=== PATIENT | female | born 1950 | race Caucasian/White ===

== ENCOUNTER → 2016-11-12 | Outpatient (CLI) | payer OTHER ==
[~2016-11-12] MED LIST: LEVO100T PO; LSN/10125 PO
[2016-11-12 17:07] LABS: BASO % 0.6 %; BASO ABS # 0.04 K/uL (0-0.2); COMPLETE YES; HEMATOCRIT 38.1 % (37-47); IG% 0.1 %; LYMPH % 20.8 %; LYMPH ABS # 1.44 K/uL (1.2-3.4); MEAN CELL VOLUME 87.2 fL (80-100); MEAN CORPUSCULAR HEMOGLOBIN 29.1 pg (25-34); MEAN CORPUSCULAR HGB CONC 33.3 g/dl (32-36); MEAN PLATELET VOLUME 10.5 fL (7.4-10.4); MONO % 6.8 %; NEUT % 69.7 %; PLATELET COUNT 281 K/uL (130-400); RED BLOOD COUNT 4.37 M/uL (4.2-5.4); WHITE BLOOD COUNT 6.92 K/uL (4.8-10.8)
[2016-11-12 17:20] LABS: BLOOD UREA NITROGEN 10 mg/dl (7-18); BUN/CREATININE RATIO 12.8 (10-20); CALCIUM 9.2 mg/dl (8.5-10.1); CARBON DIOXIDE 28 mmol/L (21-32); CHLORIDE 105 mmol/L (98-107); CREATININE 0.78 mg/dl (0.60-1.20); GLUCOSE 88 mg/dl (70-99); POTASSIUM 3.7 mmol/L (3.5-5.1); SODIUM 142 mmol/L (136-145)
[2016-11-12 17:30] LABS: CHOLESTEROL 220 mg/dl (0-200); CHOLESTEROL/HDL RATIO 2.8; HDL CHOLESTEROL 80 mg/dl; LDL CHOLESTEROL CALCULATED 120 mg/dl; THYROID STIMULATING HORMONE 0.511 uIu/ml (0.300-4.500); TRIGLYCERIDES 98 mg/dl (0-150); VERY LOW DENSITY LIPOPROT CALC 20 mg/dl
--- NOTE | 2016-11-17 13:35 | CODING QUERY MEDICAL NECESSITY ---
SUPPORTING DIAGNOSIS NEEDED A supporting diagnosis is required for the test/procedure performed on this patient in order for us to be reimbursed by the patient's insurance. Please provide a supporting diagnosis for the following test/procedure listed below next to the test name along with your signature. *If there is no additional diagnosis for this patient that would support the following test/procedure please document that below next to the test/procedure. Test(s)/Procedure(s) that require a supporting diagnosis: * VITAMIN D 25 HYDROXY DIAGNOSIS: * DOS: 11/12/16 Provider Signature: Date: Thank you Shira Lee Health Information Management Once completed, please kindly fax back to [phone] For questions please call [phone]
== END | disposition home or self-care (01) ==
LOC: C.LABBC 13:44
PROVIDERS: ATTEND Internal Medicine Geriatric Medicine
DX: I10 Essential (primary) hypertension (principal); E78.5 Hyperlipidemia, unspecified; K86.2 Cyst of pancreas; E89.0 Postprocedural hypothyroidism

== ENCOUNTER 2021-01-28 08:31 | Observation (INO) ==
--- NOTE | 2021-01-07 12:30 | Anesthesiology Consultation ---
Date of Service January 07, 2021 Assessment & Plan (1) Encounter for pre-operative examination: COVID screening: Per assessment on 01/07: Travel screen negative, no known COVID- 19 positive contacts or current COVID-19 related symptoms. Patient fully vaccinated. Surgeon arranging preop COVID testing. Awaiting results. Chart Review Chart Review: Acceptable Risk for Surgery and Patient seen in Pre Admission Testing Teaching & Discussion Pre-Anesthesia Teaching/Discussion Notes: Instructed NPO after midnight before surgery,except medications with 15 cc of water. Medication instructions provided according to the PAT guidelines. History Surgery Operation Date: 01/28/21 09:20 Proposed Procedures p Left Total Knee Arthroplasty - Devon Nobles DO Height/Weight Height: 5 ft Weight: 75.1 kg Allergies Allergy/AdvReac Type Severity Reaction Status Date / Time codeine AdvReac Mild Nausea Verified 01/07/21 12:04 Medications Home Medications Medication Instructions Recorded Confirmed Last Taken cholecalciferol (vitamin D3) 50 mcg PO PM 09/20/20 01/07/21 Unknown [Vitamin D3] levothyroxine 100 mcg PO QAM 09/20/20 01/07/21 Unknown lisinopril-hydrochlorothiazide 1 tab PO PM 09/20/20 01/07/21 Unknown meloxicam 7.5 mg tablet 7.5 - 15 mg PO PM #40 tab 11/16/20 01/07/21 Unknown Wheeled Walker #1 ea 01/07/21 01/07/21 Unknown Past Medical History Medical History Dyslipidemia GERD (gastroesophageal reflux disease) occasional Hx of Graves' disease hypothyroidism s/p ablation Hypertension Obesity Osteoarthritis Exercise / Class Metabolic Activity II 4-5 Yardwork/Stairs/Walk up hill (1 flight of stairs (no chest pain, no sob)) Past Family History Family History Mother Osteoporosis Hypertension Father Osteoarthritis Other No family history of adverse response to anesthesia Past Surgical History Surgical History History of cataract surgery R/L History of cholecystectomy History of tooth extraction Past Anesthesia History No Hx of Anesthesia Complications and No Family Hx of Anesthesia Complications History of PONV No Hx of PONV and No Hx of Motion Sickness Social History Smoking Status: Never smoker Do You Dip or Chew Tobacco: No Hx Alcohol Use: No Hx Substance Use: No substance use type: does not use Review of Systems No snoring. Patient denies chest pain, shortness of breath, dyspnea on exertion, fever, chills, cough, wheezing, palpitations. Physical Exam Vital Signs VITALS BP 124/75 P 73 TEMP 97.9 SP02 99%RA RESP 18 PHYSICAL Full neck and c-spine range of motion. Full TMJ range of motion. TMD 3 finger breaths Mallampati Score 4 (small oral opening) Dentition: full dentures upper/lower Lungs: clear throughout to auscultation Cardiac: regular rate and rhythm, no murmurs noted Spine: normal Carotid arteries: negative bruit Extremities: no edema Testing Laboratory Results 01/07/21 13:02 01/07/21 13:02 PT 9.5 Seconds (9.0-12.0) 01/07/21 13:02 INR 0.9 (0.9-1.1) 01/07/21 13:02 APTT 24.8 Seconds (21.0-31.0) 01/07/21 13:02 Blood Type AB Positive 01/07/21 13:02 Antibody Screen NEGATIVE 01/07/21 13:02 Electrocardiogram Date: 01/07/21 NSR at 67bpm. NS TWA. Chest X-Ray Date: 01/07/21 FINDINGS: The lungs are clear. Cardiac silhouette is top normal in size. No pleural effusions. No pneumothorax. Prior cholecystectomy. Old moderate compression deformity within the lower thoracic spine. IMPRESSION: No acute process.
--- NOTE | 2021-01-07 13:40 | XRay Report ---
XR chest Pre-admission PA/Lat HISTORY: Preop. COMPARISON: Chest 10/27/2012. FINDINGS: The lungs are clear. Cardiac silhouette is top normal in size. No pleural effusions. No pne umothorax. Prior cholecystectomy. Old moderate compression deformity within the lower thoracic spine. IMPRESSION: No acute process. ACT 112: Negative or not required by law. Electronically signed by: Keyshawn Chau M.D. 01/07/2021 1:39 PM
[2021-01-07 13:43] LABS: Basophils # (auto) 0.03 K/uL (0-0.2); Basophils % (auto) 0.4 %; Eosinophils # (auto) 0.11 K/uL (0-0.5); Eosinophils % (auto) 1.5 %; Hematocrit (blood only) 39.8 % (37-47); Hemoglobin 13.2 g/dL (12.0-16.0); Immature Granulocytes # (auto) 0.01 K/uL (0.00-0.02); Immature Granulocytes % (auto) 0.1 %; Lymphocytes # (auto) 1.58 K/uL (1.2-3.4); Lymphocytes % (auto) 22.1 %; Mean Corpuscular Hemoglobin 29.1 pg (25-34); Mean Corpuscular Hgb Conc 33.2 g/dL (32-36); Mean Corpuscular Volume 87.7 fL (80-100); Mean Platelet Volume 10.5 fL (7.4-10.4); Monocytes % (auto) 5.6 %; Neutrophils # (auto) 5.01 K/uL (1.4-6.5); Neutrophils % (auto) 70.3 %; Platelet Count 297 K/uL (130-400); RDW Coefficient of Variation 13.7 % (11.5-14.5); RDW Standard Deviation 43.9 fL (36.4-46.3); Red Blood Count 4.54 M/uL (4.2-5.4); White Blood Count 7.14 K/uL (4.8-10.8)
[2021-01-07 13:58] LABS: INR 0.9 (0.9-1.1); Partial Thromboplastin Ratio 0.9; Partial Thromboplastin Time 24.8 Seconds (21.0-31.0); Prothrombin Time 9.5 Seconds (9.0-12.0)
[2021-01-07 14:05] LABS: BUN Creatinine Ratio 20.9 (10-20); Calcium 9.8 mg/dl (8.5-10.1); Creatinine Clr Calc Pharmacy 57.5 ml/min; Est GFR (African American) 85.4; Est GFR (Non-African American) 73.7; Potassium 4.1 mmol/L (3.5-5.1)
--- NOTE | 2021-01-07 14:40 | Electrocardiogram Report ---
Test Reason : Blood Pressure : / mmHG Vent. Rate : 067 BPM Atrial Rate : 067 BPM P-R Int : 142 ms QRS Dur : 104 ms QT Int : 416 ms P-R-T Axes : 049 044 056 degrees QTc Int : 439 ms Normal sinus rhythm Nonspecific T wave abnormality Abnormal ECG When compared with ECG of 27-OCT-2012 19:37, No significant change was found Confirmed by Pa Lynne ([id number]) on 01/07/2021 2:40:01 PM Referred By: Devon Nobles Confirmed By:Pa Lynne
--- NOTE | 2021-01-28 06:16 | History & Physical Report ---
Date of Service January 28, 2021 Assessment & Plan (1) Osteoarthritis of left knee: We will proceed with a left total knee arthroplasty. Postoperatively she will be started on aspirin for DVT prophylaxis and placed in our outpatient joint protocol. She will be discharged home today. Therapy is scheduled to come to her house tomorrow. History of Present Illness Chief Complaint: Osteoarthritis of the left knee. Primary Care Provider: Devon Roach DO Sparkle is a pleasant 70-year-old female who has been dealing with chronic increasing left knee pain. X-rays and clinical examination have been diagnostic for advanced osteoarthritis of the left knee. After failing conservative treatment, she has elected to proceed with a left total knee arthroplasty.. Allergies Allergy/AdvReac Type Severity Reaction Status Date / Time codeine AdvReac Mild Nausea Verified 01/07/21 12:04 Home Medications Medication Instructions Recorded Confirmed Type cholecalciferol (vitamin D3) 50 mcg PO PM 09/20/20 01/07/21 History [Vitamin D3] levothyroxine 100 mcg PO QAM 09/20/20 01/07/21 History lisinopril-hydrochlorothiazide 1 tab PO PM 09/20/20 01/07/21 History meloxicam 7.5 mg tablet 7.5 - 15 mg PO PM #40 tab 11/16/20 01/07/21 Rx Wheeled Walker #1 ea 01/07/21 01/07/21 Rx ondansetron HCl 4 mg tablet 4 mg PO Q8H PRN #10 tab 01/25/21 Rx tramadol 50 mg tablet 50 mg PO Q8H PRN #30 tab 01/25/21 Rx Past Med/Surg History Medical History Dyslipidemia GERD (gastroesophageal reflux disease) occasional Hx of Graves' disease hypothyroidism s/p ablation Hypertension Obesity Osteoarthritis Surgical History History of cataract surgery R/L History of cholecystectomy History of tooth extraction Family History Mother Osteoporosis Hypertension Father Osteoarthritis Other No family history of adverse response to anesthesia Social History Smoking Status: Never smoker Second Hand Exposure: Yes ( A CHILD); Hx Alcohol Use: No Hx Substance Use: No Preferred Language: Khmer Communication Ability: Effective Visual Impairment: No Limitations Hearing Ability: Normal Coatings Inspector Required: No Beliefs That Will Affect Care: None marital status: Current Living Situation: Spouse current occupational status: retired 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 Physical Exam On physical examination of the left knee, she does have a varus deformity. She has severe tenderness palpation over the medial joint line and over the distal medial femoral condyle. She has no gross instability.. Constitutional WD/WN, vitals as above Eyes PERRL, conjunctivae normal, anicteric sclerae ENMT external ear and nose normal, oropharynx normal Neck trachea midline, no thyromegaly Respiratory normal respiratory effort Cardiovascular RRR, no murmur, no edema Gastrointestinal (Abdomen) normal bowel sounds, soft, nontender, no hepatosplenomegaly Psychiatric A+Ox3, euthymic affect Results & Data Results & Data Laboratory Results . Diagnostic Findings X-rays of the left knee do show advanced osteoarthritis with joint space narrowing, osteophyte formation, and [id number] articulation.. PG Care Time/CCT Total # of Minutes Spent Total Time Spent with Patient: Total time spent is greater than 50% in coordination of care (as documented) at patient's floor/unit and/or counseling patient: Coding Level of Care Code None Diagnoses Osteoarthritis of left knee M17.12
[~2021-01-28 08:31] MED LIST changes: +ACETAMINOPHEN 500 MG TAB PO SCH; +BUPIVACAINE 0.25% 30 ML VIAL ONE; +DEXAMETHASONE SOD INJ 4 MG/ML VIAL ONE; +EPINEPHrine INJ 1 MG/ML AMP ONE; +FAMOTIDINE 20 MG TAB PO SCH; +GABAPENTIN 300 MG CAP PO SCH; -LEVO100T PO; +LIDOCAINE/EPINEPHRINE 2% 1:200,000 20 ML SDV ONE; +LR 500ML BOLUS, THEN 15ML/HR IV SCH; +LR 60ML/HR IV SCH; -LSN/10125 PO; +ROPIVACAINE 0.5% HCL/PF 150 MG, BUPIVACAINE 0.75% MPF 20 ML, EPINEPHrine 30MG/30ML (OR ... INSTIL SCH; +TRANEXAMIC ACID 1,000 MG **IV Intra-op IV SCH; +TRANEXAMIC ACID 1,000 MG **IV Pre-op IV SCH; +ceFAZolin 1000MG 1,000 MG/7.5 ML SYR IV SCH; +dexAMETHasone 4 MG TAB PO SCH
[2021-01-28] MEDS ORDERED: MIDAZOLAM HCL 1 MG/ML 2ML VIAL ONE (10:15)
[2021-01-28] MEDS ORDERED: fentaNYL citrate 100 MCG/2 ML VIAL ONE (10:15)
[2021-01-28] MEDS ORDERED: KETAMINE 50 MG/5 ML SYRINGE ONE (10:15)
[2021-01-28] MEDS ORDERED: ONDANSETRON INJ 2 MG/ML 2 ML VIAL ONE (10:38)
[2021-01-28] MEDS ORDERED: PROPOFOL IV EMULSION 10 MG/ML 20 ML VIAL IV ONE (10:38)
[2021-01-28] MEDS ORDERED: GLYCOPYRROLATE 0.2 MG/ML VIAL ONE (10:38)
[2021-01-28] MEDS ORDERED: KETOROLAC 30 MG/ML VIAL ONE (10:38)
[2021-01-28] MEDS ORDERED: fentaNYL citrate 100 MCG/2 ML VIAL IV PRN (11:12)
[2021-01-28] MEDS ORDERED: ePHEDrine sulfate 50 MG/ML AMP IV PRN (11:12)
[2021-01-28] MEDS ORDERED: ONDANSETRON INJ 2 MG/ML 2 ML VIAL IV PRN ×2 (11:12→16:20)
[2021-01-28] MEDS ORDERED: ATROPINE SULFATE 0.1 MG/ML 10ML SYR IV PRN (11:12)
[2021-01-28] MEDS ORDERED: ORTHO JOINT ANESTHETIC ONE (11:39)
[2021-01-28] MEDS ORDERED: PHENYLEPHRINE 100MCG/ML 5ML SYR ONE (12:37)
--- NOTE | 2021-01-28 13:23 | Operative Report ---
PG Post Operative Report Pre & Post Diagnosis Operation Date: 01/28/21 10:55 Pre-Op Diagnosis: DJD Knee Left Post-Op Diagnosis: DJD Knee Left I identified the patient and participated in the time-out.: Yes Procedure Operation Date: 01/28/21 10:55 Actual Procedures p Left Total Knee Arthroplasty(Left) - Devon Nobles DO Surgeon Devon Nobles, Cloth Spreader Devon Yates PAC Estimated Blood Loss 10 Findings Consistent with Post-Op Diagnosis Specimens Left femoral and tibial bone Complications none Disposition Disposition: Recovery Room Indications Sparkle is a pleasant 70-year-old female who presented to my office with complaints of chronic increasing left knee pain. X-rays and clinical examination were diagnostic for advanced osteoarthritis of the left knee. After failing conservative treatment, she elected proceed with a left total knee arth roplasty. Description of Procedure Implants used: I used a Elvira Persona total knee arthroplasty system with a size 5 standard femur, D tibia, 32 patella, and a size 13 medial congruent polyethylene bearing. All components were cemented in place with Simplex HV cement. Sparkle arrived [facility] for the above procedure. She was seen in the preoperative holding area and the operative extremity was identified and signed. She was given a preoperative antibiotic, TXA, a spinal anesthetic and an adductor nerve block. She was taken back to the operating room and laid on the table in supine position. She was given basic sedation. The operative knee was then prepped and draped in sterile fashion. A timeout was done, and the patient and the operative extremity was properly identified. A midline incision was made directly over the patella. Dissection was taken down to the extensor mechanism. A subvastus arthrotomy was used. The medial retinaculum was released and the fat pad was mostly excised. The knee was flexed and the ACL, PCL, and meniscus were removed. A drill was sent down the center of the femoral canal followed by an intramedullary jose antonio. Off that jose antonio a distal femoral cutting block was placed. 9 mm was resected off the distal femur at 5 of valgus. A posterior referencing AP sizing guide was then placed on the distal femur. The femur measured to be a size 5. 2 drill holes were placed in 3 of external rotation. A 4-in-1 cutting block was then impacted into place. Anterior, posterior, and chamfer cuts were then made. The proximal tibia was then exposed. An external tibial alignment guide was placed. A tibial cut guide was then anchored in place and the proximal tibia was then resected. The posterior aspect of the knee was then opened up and any additional meniscus fragments and osteophytes were removed. The tibia measured to be a size D. The tibial plate was then placed in the appropriate rotation and the tibia was drilled and punched. Trial components were then placed. I used a size 13 medial congruent polyethylene insert. The knee was brought through a full range of motion and felt to be stable. The peg holes for the femoral component were then drilled. The patella was then everted and 9 mm was resected off the posterior aspect of the patella. The patella measured to be a size 32. 3 peg holes were then drilled. A trial patella was placed. The knee was once again brought through a full range of motion and felt to be stable. Trial components were then removed. The surrounding soft tissues were injected with 100 cc of an orthopedic pain control cocktail. All components were then cemented into place with Simplex HV cement. The final polyethylene insert was then snapped into place. Once cement was dry the tourniquet was deflated. Hemostasis was obtained. A dilute betadyne lavage was then done for 3 minutes. The joint was then irrigated with normal saline solution. The subvastus arthrotomy was then closed with #1 Vicryl suture. The skin was closed with 2-0 Vicryl, 3-0V lock suture, and consuelo. A Silverlon and a soft compressive dressing were placed. She was then transferred to a hospital bed and taken to the postanesthesia care unit in stable condition. She tolerated the procedure well. Devon Yates PA-C, was present for the entire procedure. He was critical for patient positioning, prepping, draping, retraction exposure, wound closure and application of sterile dressing. I attest to the content of the Intraoperative Record and any orders documented therein. Any exceptions are noted below.
[2021-01-28] MEDS ORDERED: oxyCODONE/ACETAMINOPHEN 5mg/325mg TAB PO PRN (13:26)
--- NOTE | 2021-01-28 13:56 | XRay Report ---
XR knee LT 1 or 2V routine CLINICAL HISTORY: Surgical Post Op COMPARISON: None DISCUSSION: There are postsurgical changes of a total left knee arthroplasty and patellar resurfacing . The femoral tibial components appear well seated. There is gas within the soft tissues consistent w ith recent surgery. There are overlying skin consuelo. IMPRESSION: Postsurgical changes of a total left knee arthroplasty. ACT 112: Negative or not required by law. Electronically signed by: Thomas Pineda M.D. 01/28/2021 1:55 PM
--- NOTE | 2021-01-28 14:12 | Anesthesiology Progress Note ---
Date of Service January 28, 2021 Anesthesia Post Procedure Vital Signs Vital Signs: Temp Pulse Pulse Resp BP BP Pulse Ox 01/28/21 13:55 36.6 C 69 16 112/66 96 01/28/21 13:45 94 H 16 103/66 96 01/28/21 13:35 36.8 C 100 H 16 98/60 L 96 01/28/21 09:20 36.8 C 74 18 119/72 100 Transfer of Care Handoff Completed per policy Notes Mental Status: alert / awake / arousable Patient Amnestic to Procedure: Yes Nausea / Vomiting: adequately controlled Pain: adequately controlled Airway Patency, RR, SpO2: stable & adequate BP & HR: stable & adequate Hydration State: stable & adequate Neuraxial Anesthesia: was administered and sensory block is resolving Anesthetic Complications: no major complications apparent
--- NOTE | 2021-01-28 14:13 | Anesthesia Procedure Note ---
Date of Service January 28, 2021 Anesthesia Post Epidural Note Vital Signs Vital Signs: Temp Pulse Resp BP Pulse Ox 36.6 C 69 16 112/66 96 01/28/21 13:55 01/28/21 13:55 01/28/21 13:55 01/28/21 13:55 01/28/21 13:55 Notes Mental Status: alert / awake / arousable Nausea / Vomiting: adequately controlled Pain: adequately controlled Airway Patency, RR, SpO2: stable & adequate BP & HR: stable & adequate Hydration State: stable & adequate Neuraxial Anesthesia: was administered and sensory block is resolving Anesthetic Complications: no major complications apparent and Pt Satisfied with anesthetic care Epidural: Removed without complications and With tip intact
[2021-01-28] MEDS ORDERED: PROMETHAZINE HCL 6.25 MG in SODIUM CHLORIDE 0.9% 50 ML IV STA (15:21)
[2021-01-28] MEDS ORDERED: NALOXONE HCL 0.4 MG/1 ML VIAL/CARP IV PRN (16:20)
[2021-01-28] MEDS ORDERED: bisacodyL 10 MG SUPP PR PRN (16:20)
[2021-01-28] MEDS ORDERED: MAGNESIUM HYDROXIDE SUSP 30 ML UDC PO PRN (16:20)
[2021-01-28] MEDS ORDERED: HYDROmorphone INJ 0.5 MG/0.5 ML SYR IV PRN (16:20)
[2021-01-28] MEDS ORDERED: METOCLOPRAMIDE HCL INJ 5 MG/ML 2 ML VIAL IV PRN (16:20)
[2021-01-28] MEDS ORDERED: traMADol HCL 50 MG TABLET PO PRN (16:20)
[2021-01-28] MEDS: SODIUM CHLORIDE 0.9% 1000ML 1,000 ML IV SCH (16:32)
[2021-01-28] MEDS: KETOROLAC TROMETHAMINE 15 MG/ML VIAL IV SCH ×2 (16:48→22:49)
[2021-01-28] MEDS: ceFAZolin 2000MG 2,000 MG/15 ML SYR IV SCH (20:53)
[2021-01-28] MEDS ORDERED: SENNA 8.6 MG TAB PO SCH (21:00)
[2021-01-28] MEDS ORDERED: LISINOPRIL/HCTZ 10/12.5MG TAB PO SCH (21:00)
[2021-01-28] MEDS: DOCUSATE SODIUM 100 MG CAP PO SCH (21:06)
[2021-01-28] MEDS: ACETAMINOPHEN 500 MG TAB PO SCH (21:06)
[2021-01-28] MEDS: ASPIRIN 81 MG ECTAB PO SCH (21:06)
[2021-01-29] MEDS: KETOROLAC TROMETHAMINE 15 MG/ML VIAL IV SCH ×2 (03:33→11:01)
[2021-01-29] MEDS: ceFAZolin 2000MG 2,000 MG/15 ML SYR IV SCH (03:34)
[2021-01-29] MEDS ORDERED: LEVOTHYROXINE SODIUM 100 MCG TABLET PO SCH (06:30)
[2021-01-29] MEDS: ACETAMINOPHEN 500 MG TAB PO SCH (06:31)
--- NOTE | 2021-01-29 06:40 | Orthopedic Progress Note ---
Date of Service January 29, 2021 Assessment & Plan (1) Status post left knee replacement: Overall she is doing very well. She is not having much pain in the left knee. She will be seen by physical therapy today for ambulation and range of motion exercises. She is on aspirin for DVT prophylaxis. She can be discharged home later today. She will follow-up with orthopedics in 2 weeks. Meera Villagran was seen and examined at bedside this morning. Overall she is doing very well. She is not any much pain in the left knee. She was admitted last night due to nausea and dizziness. She was given some medications and feels much better. She has been ambulating to the bathroom. She has no other complaints.. Review of Systems All systems reviewed & are unremarkable except as noted in HPI & below. Physical Exam On physical examination of the left knee, the dressing is clean and dry. She has active dorsiflexion plantarflexion of her left ankle. Sensation is intact throughout.. Results & Data Results & Data Laboratory Results . Diagnostic Findings Postoperative x-rays of the left knee show the prosthesis to be in anatomic alignment without any evidence of fracture, dislocation, or loosening. PG Care Time/CCT Total # of Minutes Spent Total Time Spent with Patient: Total time spent is greater than 50% in coordination of care (as documented) at patient's floor/unit and/or counseling patient: Coding Level of Care Code 39301 Post Operative Follow-Up Diagnoses Status post left knee replacement Z96.652
--- NOTE | 2021-01-29 06:42 | Discharge Summary ---
Date of Service January 29, 2021 Admission HPI (Per Admitting) Sparkle is a pleasant 70-year-old female who has been dealing with chronic increasing left knee pain. X-rays and clinical examination have been diagnostic for advanced osteoarthritis of the left knee. After failing conservative treatment, she has elected to proceed with a left total knee arthroplasty.. Admission Exam (Per Admitting) On physical examination of the left knee, she does have a varus deformity. She has severe tenderness palpation over the medial joint line and over the distal medial femoral condyle. She has no gross instability.. Principal Diagnosis Same as "Discharge Diagnosis" noted below under Discharge Instructions. Discharge Exam On physical examination of the left knee, the dressing is clean and dry. She has active dorsiflexion plantarflexion of her left ankle. Sensation is intact throughout.. Discharge Data Procedures Performed Operation Date: 01/28/21 10:55 Actual Procedures p Left Total Knee Arthroplasty(Left) - Devon Nobles DO Ordered Studies 01/28/21 05:00 US - OR guided needle placemen Routine Hospital Course (1) Status post left knee replacement: On January 28, 2021 Sparkle arrived at [facility] and underwent a left knee replacement without complication. She had a spinal anesthetic. Postoperatively she was started on aspirin for DVT prophylaxis. She was in our outpatient joint protocol, however, postoperatively she was having a lot of nausea and dizziness. She was unable to be seen by therapy by the end of the day. The decision was made to admit her overnight for observation. Her hospital course was uneventful. On postop day #1 her vital signs were stable and her pain was well controlled. She was feeling much better. She was seen by physical therapy for ambulation and range of motion exercises. She was then discharged home. She will follow-up with orthopedics in 2 weeks. PG Care Time/CCT Total # of Minutes Spent Total Time Spent with Patient: Total time spent is greater than 50% in coordination of care (as documented) at patient's floor/unit and/or counseling patient: Discharge Plan Discharge Items Patient Disposition: Home - Home Health Services Reason For Visit: DJD Knee Left Discharge Diagnosis: Left knee replacement Activity: As commented below Non-emergency contact: Surgeon Call non-emergency contact if: your wound has increased redness and your wound has increased drainage Follow-up/Referrals: [facility] [Outside] (Per surgeon's office) Devon Roach DO [Primary Care Provider] - Devon Nobles DO [Physician] - Diet: Regular Addtl Attending Provider Instructions: Activity and Therapy Recommendations: * If you are using [facility] then therapy will be provided at your home until they feel you have accomplished all of your goals. * If you are using [facility] then Physical Therapy will be provided until they feel you are ready to start Outpatient Physical Therapy. * If you are not using home therapy then Outpatient Physical Therapy should start about 3-5 days from your day of surgery. Therapy will last about 6-10 weeks * It is important not to put a pillow under your knee when you are relaxing or sleeping. It is just as important to make sure you are getting your knee perfectly straight as it is to regain your knee bend. * You were shown a series of exercises in the hospital. Do these exercises three times each day including the exercises you were shown in physical therapy. * Get up and walk several times each day. For the first four weeks, try not to stand or walk for more than one hour at a time. If you do stand or walk for more than one hour, you will not hurt anything, but your leg will likely swell. * As you feel comfortable, you may change from the walker or crutches to a cane and then to independent walking. Medications: * Narcotic You will likely be sent home from the hospital with a prescription for the narcotic pain medication that worked best throughout your stay. * Aspirin Most patients will be required to take Aspirin 81mg twice a day for 6 weeks after surgery. This is obtained [id number] and a prescription is not necessary. * Other medications may be prescribed for specific circumstances. If you have any questions, please call the office at . * Resume previous home medications unless otherwise instructed TEDs/Elastic Stockings: The white elastic stockings help limit swelling and prevent blood clots from forming in your legs.~ The more you wear them, the more they work. Wear them for six weeks. Dressing Care: Leave the dressing on until after physical therapy on day 1. Then you may change the dressing. Daily dry dressing changes, but you may leave the incision open to air if it is not draining. If there is a little bit of drainage or if the consuelo are getting stuck on your clothing then cover the incision with a dry dressing. The consuelo will be removed at your 2 week follow-up appointment. Showering: You may shower 5 days after the day of surgery with the consuelo exposed. Let soapy water run over the consuelo and pat them dry. Do not scrub or soak the incision. Things To Watch For: * Drainage from the incision site that occurs more than one week after your surgery. * Increased redness at the incision site. * Fever above 102 degrees Fahrenheit. * Unusual chest pain or shortness of breath. * Call [facility] at with any of the above problems Follow-Up Visit: Follow-up with Dr. Nobles's PA (Devon Yates) 2-3 weeks after your day of alamo rgery. He will remove your consuelo and answer any questions. If you have any additional questions or concerns, Dr Nobles is usually in the office at the same time and will be available An appointment was probably scheduled when you signed-up for surgery in the office. If you have any questions call Office Instructions: More detailed instructions as well as Frequently Asked Questions were provided in a folder by our office when you signed-up for surgery. Please review these instructions when you get home. If you have any further questions or concerns, please feel free to call the office at [phone] Pending Studies at Discharge: No Stand-Alone Forms: Anesthesia/Sedation, Adult, My [facility] [address] Medications and DC Order Prescriptions: New aspirin [Adult Low Dose Aspirin] 81 mg tablet,delayed release (DR/EC) 81 mg PO BID Qty: 84 RF: 0 Continued meloxicam 7.5 mg tablet 7.5 - 15 mg PO PM Qty: 40 RF: 2 tramadol 50 mg tablet 50 mg PO Q8H PRN (Reason: pain) Qty: 30 RF: 0 ondansetron HCl [Zofran] 4 mg tablet 4 mg PO Q8H PRN (Reason: nausea and vomiting) Qty: 10 RF: 0 (DME) Wheeled Walker Misc See Rx Instructions .MEDSUPPLY Qty: 1 RF: 0 levothyroxine 100 mcg tablet 100 mcg PO QAM RF: 0 lisinopril-hydrochlorothiazide 10-12.5 mg tablet 1 tab PO PM RF: 0 cholecalciferol (vitamin D3) [Vitamin D3] 50 mcg (2,000 unit) Capsule 50 mcg PO PM RF: 0 Discharge Orders: Discharge Order (Routine); Ordered 01/29/21 Ordered By: Devon Ruiz/Other Patient Handouts: DVT Post Op Prevention Admission Data Admit Date/Time: 01/28/21 15:24 Attending Provider: Devon Nobles Admit Provider: Devon Nobles Primary Care Provider: Devon Roach Other Interventions: Discharge Summary Assessment (RN) Last Done: 01/28/21 16:03
[2021-01-29] MEDS ORDERED: dexAMETHasone 4 MG TAB PO SCH (08:00)
[2021-01-29] MEDS: SODIUM CHLORIDE 0.9% 1000ML 1,000 ML IV SCH (08:41)
[2021-01-29] MEDS: DOCUSATE SODIUM 100 MG CAP PO SCH (08:43)
[2021-01-29] MEDS: ASPIRIN 81 MG ECTAB PO SCH (08:44)
[2021-01-29] MEDS ORDERED: MULTIVITAMIN TAB PO SCH (09:00)
== END 2021-01-29 13:47 | disposition home health service (06) ==
LOC: 3E 08:31 → ASU 08:31

== ENCOUNTER 2021-02-11 19:21 | Inpatient (IN) ==
[2021-02-11] MEDS ORDERED: ONDANSETRON INJ 2 MG/ML 2 ML VIAL IV STA (20:00)
[2021-02-11] MEDS ORDERED: SODIUM CHLORIDE 0.9% 500 ML IV SCH (20:00)
[2021-02-11] MEDS ORDERED: SODIUM CHLORIDE 0.9% 1000ML 1,000 ML IV SCH (20:00)
[2021-02-11 20:21] LABS: Hematocrit (blood only) 31.2 % (37-47); Hemoglobin 10.5 g/dL (12.0-16.0); Mean Corpuscular Hemoglobin 29.2 pg (25-34); Mean Corpuscular Hgb Conc 33.7 g/dL (32-36); Mean Corpuscular Volume 86.9 fL (80-100); Mean Platelet Volume 10.1 fL (7.4-10.4); Platelet Count 417 K/uL (130-400); RDW Coefficient of Variation 14.4 % (11.5-14.5); RDW Standard Deviation 45.1 fL (36.4-46.3); Red Blood Count 3.59 M/uL (4.2-5.4); White Blood Count 13.29 K/uL (4.8-10.8)
--- NOTE | 2021-02-11 20:33 | Emergency Department Note ---
Impression & Plan Nausea, Constipation, Weakness, Abnormal weight loss ED Provider Note INFORMANT: Patient ED PROVIDER(S): Juvenal Arias MD CHIEF COMPLAINT: Illness PLAN: Disposition: Admitted Condition: Good Outpatient prescription management: none Referral: None MEDICAL DECISION MAKING: Patient presented to emergency department complaining of illness, weakness and weight loss. She noted nausea. On further review she also noted moderate constipation. She had an IV established. An ECG was performed. This did not show any ST elevation but she did have inferior Q waves and poor progression. Her blood work revealed an elevated white blood cell count of 13,000. She had a mild anemia. Chemistry panel was unremarkable. The patient underwent CT scan imaging of the abdomen and pelvis and this showed a stercoral proctitis and significant constipation. Her endometrium was also mildly thickened. The patient was treated with Zofran and did feel better with this. I discussed the constipation issue and soapsuds enema was ordered. The patient had minimal success with this. Additional fluids were administered. She was still quite uncomfortable and generally weak. She did not feel like she was capable of going home. She still felt constipated. A milk of molasses enema was ordered. Given the proctitis, significant constipation and her generalized weakness the patient had a consultation placed with internal medicine. I discussed the case with Dr. Benz. She evaluated the patient in the ER for further management. Triage Nursing notes reviewed and agree them. Vital Signs: reviewed and remarkable for no significant abnormalities Differential diagnosis: Infection, dehydration, metabolic abnormality, hypo/hyperglycemia, electrolyte disturbance, anemia, hypoxia, cardiac sources, intracerebral event, toxicologic, neurologic, constipation, biliary pathology, as well as other pathologies. Diagnostics interpreted by me: ECG: Twelve-lead ECG reveals normal sinus rhythm at 87 bpm. Inferior Q waves present. There is poor R wave progression anteriorly. No ST elevation. No PVCs. Normal axis. Cardiac Monitoring: Cardiac monitoring ordered by me: The patient was placed on continuous cardiac monitoring and observed. It revealed a sinus tachycardic rhythm at 110 bpm. Imaging studies: CT imaging of the abdomen pelvis reveals stercoral proctitis as noted above. Thickened endometrium also noted. Patient was informed. I refer you to the EMR for further details. HPI: The patient is a 70 year old female who presents to the Emergency Room with complaints of nausea. This started 2 weeks ago and is worsening. The patient also notes the following associated symptoms, 10 pound weight loss, generalized weakness, constipation. The patient has been prescribed Compazine un successfully for relieving factors. Current pain is rated as 0/10. Patient was seen in the ER a week ago and had a work-up done. Work-up was negative. Tested for Covid. This was negative as well. Prescribed Compazine. Notes it is not helping. Pt denies LOC, headache, fevers, chills, diaphoresis, visual changes, neck pain, chest pain, breathing difficulties, vomiting, abdominal pain, back pa in, melena, hematochezia, urinary symptoms, numbness, lymphadenopathy, rash, or other complaints. ROS: See above HPI for pertinent positives & negatives. A total of 10 systems reviewed and were otherwise negative. PAST MEDICAL HISTORY:See Below , hypertension PAST SURGICAL HISTORY:See Below, left total knee replacement FAMILY HISTORY:See Below SOCIAL HISTORY:See Below, retired HOME MEDICATIONS:See Below ALLERGIES:See Below VITALS:See Below PHYSICAL EXAMINATION: GENERAL: Awake, alert, uncomfortable appearing, in mild distress HENT: Normocephalic, atraumatic. Oropharynx unremarkable. EYES: Normal conjunctiva. Sclera non-icteric. NECK: Inspection normal. Non-tender. Supple. No nuchal rigidity. FROM. No masses. RESPIRATORY: Clear to auscultation. No wheezes. No rales. Normal respiratory effort. CARDIAC: Normal rate. Normal rhythm. No murmurs. No rubs. Extremities warm and well perfused. Pulses equal. No JVD. GI: Soft, non-distended. No tenderness to palpation. No rebound or guarding. No masses. RECTAL: Deferred. MUSCULOSKELETAL: Atraumatic. Chest examination reveals no tenderness. The back is symmetrical on inspection without obvious abnormality. There is no CVA tenderness to palpation. No joint edema. LOWER EXTREMITIES: Surgical incision on the left knee appears clean dry and intact. Mild associated bruising and typical postsurgical swelling noted. There is no crepitus. No fluctuance. NEURO: Normal sensorium. No sensory or motor deficits noted. SKIN: No rash or jaundice noted. Juvenal Arias MD Past Med/Surg History Medical History Dyslipidemia GERD (gastroesophageal reflux disease) occasional Hx of Graves' disease hypothyroidism s/p ablation Hypertension Obesity Osteoarthritis Surgical History History of cataract surgery R/L History of cholecystectomy History of tooth extraction Family History Mother Osteoporosis Hypertension Father Osteoarthritis Other No family history of adverse response to anesthesia Social History Smoking Status: Never smoker Second Hand Exposure: Yes ( A CHILD); Hx Alcohol Use: No Hx Substance Use: No Preferred Language: Burmese Communication Ability: Effective Visual Impairment: No Limitations Hearing Ability: Normal Bean Dumper Required: No Beliefs That Will Affect Care: None marital status: Current Living Situation: Spouse current occupational status: retired 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 [employer] Feels Safe at Home: Yes Childhood Exposure to Second-Hand Smoke: Yes Dental Care, Regularly: No Physical Activity Frequency: 5-6 Times per Week Seatbelt Use: always Sunscreen Use: Yes Assistive Devices: Walker Allergies Allergies Allergy/AdvReac Type Severity Reaction Status Date / Time codeine AdvReac Mild Nausea Verified 02/11/21 23:55 Home Meds Home Medications Medication Instructions Recorded Confirmed cholecalciferol (vitamin D3) 50 mcg PO PM 09/20/20 02/11/21 [Vitamin D3] levothyroxine 100 mcg PO QAM 09/20/20 02/11/21 lisinopril-hydrochlorothiazide 1 tab PO PM 09/20/20 02/11/21 acetaminophen [Tylenol Extra 1,000 mg PO BID 02/02/21 02/11/21 Strength] docusate sodium 100 mg PO DAILY 02/11/21 02/11/21 Previous Rx's Medication Instructions Recorded meloxicam 7.5 mg tablet 7.5 - 15 mg PO PM #40 tab 11/16/20 Wheeled Walker #1 ea 01/07/21 ondansetron HCl 4 mg tablet 4 mg PO Q8H PRN #10 tab 01/25/21 tramadol 50 mg tablet 50 mg PO Q8H PRN #30 tab 01/25/21 aspirin [Adult Low Dose Aspirin] 81 mg PO BID #84 tab 01/28/21 prochlorperazine maleate 10 mg PO Q6H PRN #20 tab 02/02/21 [Compazine] Results & Data (ED) Vital Signs Vital Signs - 24 hr 02/11/21 19:37 02/11/21 19:40 02/11/21 19:49 Temperature 36.9 C Temperature Source Temporal Artery Scan Pulse Rate 110 H 94 H Pulse Rate from SpO2 Sensor 94 H Respiratory Rate 18 25 H Respiratory Effort / Characteristics Non-Labored Spontaneous Respiratory Depth Normal Normal Respiratory Pattern Regular Blood Pressure 105/69 110/83 Blood Pressure Mean 81 92 Pulse Oximetry 96 100 Oxygen Delivery Method Room Air Room Air Sepsis Recent Fever Within 48 Hours No Sepsis New/Unexplained Change in Mental Status N/A Sepsis Action Taken by Nursing No Action Required 02/11/21 22:45 02/11/21 22:51 Temperature Temperature Source Pulse Rate Pulse Rate from SpO2 Sensor 86 Respiratory Rate Respiratory Effort / Characteristics Respiratory Depth Respiratory Pattern Blood Pressure 100/46 L 113/81 Blood Pressure Mean 64 91 Pulse Oximetry 98 98 Oxygen Delivery Method Room Air Room Air Sepsis Recent Fever Within 48 Hours Sepsis New/Unexplained Change in Mental Status Sepsis Action Taken by Nursing Laboratory Data Result diagrams: 02/11/21 20:00 02/11/21 20:00 Lab Results 02/11/21 02/11/21 02/11/21 Range/Units 20:00 20:00 20:00 WBC 13.29 H (4.8-10.8) K/uL RBC 3.59 L (4.2-5.4) M/uL Hgb 10.5 L (12.0-16.0) g/dL Hct 31.2 L (37-47) % MCV 86.9 (80-100) fL MCH 29.2 (25-34) pg MCHC 33.7 (32-36) g/dL RDW Std Deviation 45.1 (36.4-46.3) fL RDW Coeff of Vinh 14.4 (11.5-14.5) % Plt Count 417 H (130-400) K/uL MPV 10.1 (7.4-10.4) fL Immature Gran % (Auto) 0.2 % Neut % (Auto) 76.6 % Lymph % (Auto) 16.1 % Howard % (Auto) 6.1 % Eos % (Auto) 0.7 % Baso % (Auto) 0.3 % Neut # (Auto) 10.19 H (1.4-6.5) K/uL Lymph # (Auto) 2.14 (1.2-3.4) K/uL Howard # (Auto) 0.81 H (0.11-0.59) K/uL Eos # (Auto) 0.09 (0-0.5) K/uL Baso # (Auto) 0.04 (0-0.2) K/uL Immature Gran # (Auto) 0.02 (0.00-0.02) K/uL Sodium 135 L (136-145) mmol/L Potassium 3.4 L (3.5-5.1) mmol/L Chloride 100 (98-107) mmol/L Carbon Dioxide 26 (21-32) mmol/L Anion Gap 9.0 (3-11) BUN 17 (7-18) mg/dl Creatinine 0.79 (0.6-1.2) mg/dl Est Cr Clr Drug Dosing 56.4 ml/min Est GFR ( Amer) 86.7 Est GFR (Non-Af Amer) 74.8 BUN/Creatinine Ratio 21.8 H (10-20) Glucose 110 H (70-99) mg/dl Calcium 9.5 (8.5-10.1) mg/dl Magnesium 2.2 (1.8-2.4) mg/dl Total Bilirubin 0.6 (0.2-1) mg/dl AST 16 (15-37) U/L ALT 19 (12-78) U/L Alkaline Phosphatase 69 (45-117) U/L Troponin I < 0.015 (0-0.045) ng/ml Total Protein 6.9 (6.4-8.2) gm/dl Albumin 3.6 (3.4-5.0) gm/dl Globulin 3.3 (2.5-4.0) gm/dl Albumin/Globulin Ratio 1.1 (0.9-2) TSH 5.260 H (0.300-4.500) uIu/ml Free T4 1.59 (0.8-1.6) ng/dl COVID-19 Eval Order CovFluRsv at [facility] SARS-CoV-2 (PCR) (Negative) Influenza Type A (PCR) (Neg) Influenza Type B (PCR) (Neg) RSV (RT-PCR) (Neg) 02/11/21 Range/Units 20:00 WBC (4.8-10.8) K/uL RBC (4.2-5.4) M/uL Hgb (12.0-16.0) g/dL Hct (37-47) % MCV (80-100) fL MCH (25-34) pg MCHC (32-36) g/dL RDW Std Deviation (36.4-46.3) fL RDW Coeff of Vinh (11.5-14.5) % Plt Count (130-400) K/uL MPV (7.4-10.4) fL Immature Gran % (Auto) % Neut % (Auto) % Lymph % (Auto) % Howard % (Auto) % Eos % (Auto) % Baso % (Auto) % Neut # (Auto) (1.4-6.5) K/uL Lymph # (Auto) (1.2-3.4) K/uL Howard # (Auto) (0.11-0.59) K/uL Eos # (Auto) (0-0.5) K/uL Baso # (Auto) (0-0.2) K/uL Immature Gran # (Auto) (0.00-0.02) K/uL Sodium (136-145) mmol/L Potassium (3.5-5.1) mmol/L Chloride (98-107) mmol/L Carbon Dioxide (21-32) mmol/L Anion Gap (3-11) BUN (7-18) mg/dl Creatinine (0.6-1.2) mg/dl Est Cr Clr Drug Dosing ml/min Est GFR ( Amer) Est GFR (Non-Af Amer) BUN/Creatinine Ratio (10-20) Glucose (70-99) mg/dl Calcium (8.5-10.1) mg/dl Magnesium (1.8-2.4) mg/dl Total Bilirubin (0.2-1) mg/dl AST (15-37) U/L ALT (12-78) U/L Alkaline Phosphatase (45-117) U/L Troponin I (0-0.045) ng/ml Total Protein (6.4-8.2) gm/dl Albumin (3.4-5.0) gm/dl Globulin (2.5-4.0) gm/dl Albumin/Globulin Ratio (0.9-2) TSH (0.300-4.500) uIu/ml Free T4 (0.8-1.6) ng/dl COVID-19 Eval Order SARS-CoV-2 (PCR) NEGATIVE (Negative) Influenza Type A (PCR) Negative (Neg) Influenza Type B (PCR) Negative (Neg) RSV (RT-PCR) Negative (Neg) Administered Medications Discontinued Medications Sodium Chloride (Nss) 500 mls @ 999 mls/hr IV .Q31M DARIN Stop: 02/11/21 20:30 Last Admin: 02/11/21 20:25 Dose: 999 mls/hr Documented by: [id number] Ondansetron HCl (Ondansetron Inj 2 Mg/Ml 2 Ml Vial) 4 mg IV NOW STA Stop: 02/11/21 20:01 Last Admin: 02/11/21 20:24 Dose: 4 mg Documented by: [id number] Imaging Data Radiologist's Impression: Abdomen/Pelvis CT 02/11/21 20:00 CT SCAN OF THE ABDOMEN AND PELVIS WITHOUT IV CONTRAST CLINICAL HISTORY: Nausea. Constipation. Weight loss. COMPARISON STUDY: Abdominal CT dated 10/27/2012. TECHNIQUE: CT scan of the abdomen and pelvis is performed from the lung bases to the proximal femora. Images are reviewed in the axial, sagittal, and coronal planes. IV contrast was not administered for this examination. Note that the examination was performed in significantly suboptimal fashion without oral and IV contrast. A dose lowering technique was utilized adhering to the principles of ALARA. CT DOSE: 358.49 mGy.cm FINDINGS: Lung bases: The heart is normal in size and without pericardial effusion. The l kristian bases are clear. There is a moderate hiatal hernia. Liver: The unenhanced liver is normal in size, contour, and attenuation. There is no intrahepatic biliary ductal dilatation. A 1.2 cm cyst is noted in the right lobe. Gallbladder: Surgically absent noting clips in the gallbladder fossa. Spleen: Normal in size and attenuation. Pancreas: Unremarkable. Adrenal glands: A 1.6 cm left adrenal adenoma is unchanged. The right adrenal gland is normal in appearance. Kidneys: The unenhanced kidneys demonstrate cortical atrophy and are without h ydronephrosis. There are no renal calculi identified. There is no evidence of contour deforming renal mass lesion. Abdominal vasculature: The abdominal aorta is normal in course and caliber noting mild atherosclerotic calcification. Bowel: There is rectosigmoid fecal impaction and mild/moderate constipation. There is mild perirectal inflammation. No bowel obstruction is seen. The appendix is normal as visualized. Peritoneum: There is no intraperitoneal free air or abdominal ascites. Lymphadenopathy: None. Pelvic viscera: The bladder is normal as visualized. The endometrium appears thickened in the fundal region measuring approximately 1 cm. No adnexal lesion is seen. Skeletal structures: The skeletal structures are heterogeneously osteopenic. There are numerous chronic appearing compression deformities identified throughout the imaged thoracolumbar spine. Moderate lumbosacral spondylosis is observed. No lytic or blastic lesions are seen. IMPRESSION: 1. There is rectosigmoid fecal impaction and mild to moderate constipation. 2. No bowel obstruction is seen. 3. There is mild perirectal inflammation. Correlate clinically for evidence of stercoral proctitis. 4. The endometrium appears thickened for age measuring approximately 1 cm. This is not well evaluated by CT. Nonemergent pelvic ultrasound and gynecology assessment are recommended. 5. There are numerous chronic appearing thoracolumbar compression deformities which are new from 2013. 6. Moderate hiatal hernia. 7. Additional findings as above. ACT 112: Negative or not required by law. Electronically signed by: Alex Golden M.D. 02/11/2021 8:51 PM Chest X-Ray 02/11/21 20:01 SINGLE VIEW CHEST CLINICAL HISTORY: Generalized weakness. FINDINGS: An AP, portable, upright chest radiograph is compared to study dated 02/02/2021. The cardiomediastinal silhouette is unremarkable. Chronic interstitia l thickening is similar to previous. The lungs and pleural spaces are clear. No pneumothorax is seen. The skeletal structures are osteopenic. The bony thorax is grossly intact. IMPRESSION: No active disease in the chest. ACT 112: Negative or not required by law. Electronically signed by: Alex Golden M.D. 02/11/2021 8:43 PM Discharge Plan Visit Data Chief Complaint: Illness Stated Complaint: NAUSEA, CONSTIPATION, KNEE SUGERY 2 WKS AGO ED Provider: Juvenal Arias Discharge Problem: Nausea, Constipation, Weakness, Abnormal weight loss Forms Stand Alone Forms: My [employer] Prescriptions Prescriptions: No Action meloxicam 7.5 mg tablet 7.5 - 15 mg PO PM Qty: 40 RF: 2 tramadol 50 mg tablet 50 mg PO Q8H PRN (Reason: pain) Qty: 30 RF: 0 ondansetron HCl [Zofran] 4 mg tablet 4 mg PO Q8H PRN (Reason: nausea and vomiting) Qty: 10 RF: 0 (DME) Wheeled Walker Misc See Rx Instructions .MEDSUPPLY Qty: 1 RF: 0 levothyroxine 100 mcg tablet 100 mcg PO QAM RF: 0 lisinopril-hydrochlorothiazide 10-12.5 mg tablet 1 tab PO PM RF: 0 cholecalciferol (vitamin D3) [Vitamin D3] 50 mcg (2,000 unit) Capsule 50 mcg PO PM RF: 0 aspirin [Adult Low Dose Aspirin] 81 mg tablet,delayed release (DR/EC) 81 mg PO BID Qty: 84 RF: 0 docusate sodium 100 mg Capsule 100 mg PO DAILY RF: 0 acetaminophen [Tylenol Extra Strength] 500 mg Tablet 1,000 mg PO BID RF: 0 prochlorperazine maleate [Compazine] 10 mg tablet 10 mg PO Q6H PRN (Reason: nausea and vomiting) Qty: 20 RF: 0
[2021-02-11 20:40] LABS: Basophils # (auto) 0.04 K/uL (0-0.2); Basophils % (auto) 0.3 %; Eosinophils # (auto) 0.09 K/uL (0-0.5); Eosinophils % (auto) 0.7 %; Immature Granulocytes # (auto) 0.02 K/uL (0.00-0.02); Immature Granulocytes % (auto) 0.2 %; Lymphocytes # (auto) 2.14 K/uL (1.2-3.4); Lymphocytes % (auto) 16.1 %; Monocytes # (auto) 0.81 K/uL (0.11-0.59); Monocytes % (auto) 6.1 %; Neutrophils # (auto) 10.19 K/uL (1.4-6.5); Neutrophils % (auto) 76.6 %
[2021-02-11 20:41] LABS: Alanine Aminotransferase 19 U/L (12-78); Albumin Level 3.6 gm/dl (3.4-5.0); Aspartate Aminotransferase 16 U/L (15-37); BUN Creatinine Ratio 21.8 (10-20); Blood Urea Nitrogen 17 mg/dl (7-18); Calcium 9.5 mg/dl (8.5-10.1); Carbon Dioxide 26 mmol/L (21-32); Chloride 100 mmol/L (98-107); Creatinine Clr Calc Pharmacy 56.4 ml/min; Est GFR (African American) 86.7; Est GFR (Non-African American) 74.8; Glucose 110 mg/dl (70-99); Magnesium 2.2 mg/dl (1.8-2.4); Potassium 3.4 mmol/L (3.5-5.1); Sodium 135 mmol/L (136-145)
--- NOTE | 2021-02-11 20:45 | XRay Report ---
SINGLE VIEW CHEST CLINICAL HISTORY: Generalized weakness. FINDINGS: An AP, portable, upright chest radiograph is compared to study dated 02/02/2021. The cardiom ediastinal silhouette is unremarkable. Chronic interstitial thickening is similar to previous. The rob ngs and pleural spaces are clear. No pneumothorax is seen. The skeletal structures are osteopenic. Th e bony thorax is grossly intact. IMPRESSION: No active disease in the chest. ACT 112: Negative or not required by law. Electronically signed by: Alex Golden M.D. 02/11/2021 8:43 PM
[2021-02-11 20:52] LABS: Albumin Globulin Ratio 1.1 (0.9-2); Alkaline Phosphatase 69 U/L (45-117); Bilirubin,Total 0.6 mg/dl (0.2-1); Globulin 3.3 gm/dl (2.5-4.0); Total Protein 6.9 gm/dl (6.4-8.2); Troponin I < 0.015 ng/ml (0-0.045)
--- NOTE | 2021-02-11 20:52 | CT Scan Report ---
CT SCAN OF THE ABDOMEN AND PELVIS WITHOUT IV CONTRAST CLINICAL HISTORY: Nausea. Constipation. Weight loss. COMPARISON STUDY: Abdominal CT dated 10/27/2012. TECHNIQUE: CT scan of the abdomen and pelvis is performed from the lung bases to the proximal femora. Images are reviewed in the axial, sagittal, and coronal planes. IV contrast was not administered for this examination. Note that the examination was performed in significantly suboptimal fashion withou t oral and IV contrast. A dose lowering technique was utilized adhering to the principles of ALARA. CT DOSE: 358.49 mGy.cm FINDINGS: Lung bases: The heart is normal in size and without pericardial effusion. The lung bases are clear. T here is a moderate hiatal hernia. Liver: The unenhanced liver is normal in size, contour, and attenuation. There is no intrahepatic messi iary ductal dilatation. A 1.2 cm cyst is noted in the right lobe. Gallbladder: Surgically absent noting clips in the gallbladder fossa. Spleen: Normal in size and attenuation. Pancreas: Unremarkable. Adrenal glands: A 1.6 cm left adrenal adenoma is unchanged. The right adrenal gland is normal in appe arance. Kidneys: The unenhanced kidneys demonstrate cortical atrophy and are without hydronephrosis. There ar e no renal calculi identified. There is no evidence of contour deforming renal mass lesion. Abdominal vasculature: The abdominal aorta is normal in course and caliber noting mild atheroscleroti c calcification. Bowel: There is rectosigmoid fecal impaction and mild/moderate constipation. There is mild perirectal inflammation. No bowel obstruction is seen. The appendix is normal as visualized. Peritoneum: There is no intraperitoneal free air or abdominal ascites. Lymphadenopathy: None. Pelvic viscera: The bladder is normal as visualized. The endometrium appears thickened in the fundal region measuring approximately 1 cm. No adnexal lesion is seen. Skeletal structures: The skeletal structures are heterogeneously osteopenic. There are numerous chron ic appearing compression deformities identified throughout the imaged thoracolumbar spine. Moderate l umbosacral spondylosis is observed. No lytic or blastic lesions are seen. IMPRESSION: 1. There is rectosigmoid fecal impaction and mild to moderate constipation. 2. No bowel obstruction is seen. 3. There is mild perirectal inflammation. Correlate clinically for evidence of stercoral proctitis. 4. The endometrium appears thickened for age measuring approximately 1 cm. This is not well evaluated by CT. Nonemergent pelvic ultrasound and gynecology assessment are recommended. 5. There are numerous chronic appearing thoracolumbar compression deformities which are new from 2013 . 6. Moderate hiatal hernia. 7. Additional findings as above. ACT 112: Negative or not required by law. Electronically signed by: Alex Golden M.D. 02/11/2021 8:51 PM
[2021-02-11 20:55] LABS: Influenza A virus by PCR Negative (Neg); Influenza B virus by PCR Negative (Neg); RSV by PCR Negative (Neg); SARS CoV2 RNA(COVID-19) InHosp NEGATIVE (Negative)
[2021-02-11 21:05] LABS: T4 Free Thyroxine 1.59 ng/dl (0.8-1.6)
--- NOTE | 2021-02-12 02:09 | History & Physical Report ---
Date of Service February 12, 2021 Assessment & Plan (1) Constipation: 70yo C female presenting with two weeks of constipation. Last normal BM reported to be on 01/27/21. Patient had a left TKA performed on 01/28/21. She reports taking minimal pain medication. CT with rectosigmoid fecal impaction a nd mild to moderate constipation. -Observation to medical -IVF and electrolyte repletion as needed -Colace 100mg po BID -Dulcolax 10mg ND daily -Pericolace 10mg PO daily -Magnesium Citrate daily -Encourage ambulation -May need manual disimpaction if above measures are unsuccessful -Zofran PRN nausea Present on Admission?: Yes (2) Status post left knee replacement: Patient doing well. Surgical site appears clean with no evidence of infection -Continue ASA 81mg po BID -Continue Meloxicam as needed -Encourage ambulation as tolerated with assistance as needed Present on Admission?: Yes (3) Postablative hypothyroidism: TSH elevated at 5.26 with normal T4 -Continue Synthroid 100mcg po daily Present on Admission?: Yes (4) Hypertension: Blood pressure stable, 119/80 -Continue Lisinopril/HCTZ -Continue to monitor Present on Admission?: Yes (5) Thickened endometrium: Patient should have non-emergent outpatient imaging for workup of this issue. Finding not yet discussed with patient. F/E/N - LR at 100mL/hr x 2 liters, K repletion, repeat labs in AM, Clear liquid diet as tolerated Ppx - SCDs, continue ASA 81mg po BID Code - Full per discussion with patient Dispo - Observation to medical Present on Admission?: Yes History of Present Illness Chief Complaint: constipation, nausea Primary Care Provider: DO Sparkle Mckeon Dl is a 70yo female presenting with constipation. Patient had a right TKA performed on 01/28/21. Surgery was well tolerated with no complications. She has taken minimal pain medication and is participating in PT as best as she is able. She reports ongoing constipation with last BM being on 01/27/21. She has abdominal pain and fullness as well as nausea and vomiting. She reports poor appetite and decreased PO intake. She is passing gas. Denies fever/chills/CP/SOB. She was administered a soap suds enema as well as molasses enema in the ER with no reponse. ER Course: Zofran, NSS Allergies Allergy/AdvReac Type Severity Reaction Status Date / Time codeine AdvReac Mild Nausea Verified 02/11/21 23:55 Home Medications Medication Instructions Recorded Confirmed Type cholecalciferol (vitamin D3) 50 mcg PO PM 09/20/20 02/11/21 History [Vitamin D3] levothyroxine 100 mcg PO QAM 09/20/20 02/11/21 History lisinopril-hydrochlorothiazide 1 tab PO PM 09/20/20 02/11/21 History meloxicam 7.5 mg tablet 7.5 - 15 mg PO PM #40 tab 11/16/20 02/11/21 Rx Wheeled Walker #1 ea 01/07/21 01/07/21 Rx ondansetron HCl 4 mg tablet 4 mg PO Q8H PRN #10 tab 01/25/21 02/11/21 Rx tramadol 50 mg tablet 50 mg PO Q8H PRN #30 tab 01/25/21 02/11/21 Rx aspirin [Adult Low Dose Aspirin] 81 mg PO BID #84 tab 01/28/21 02/11/21 Rx acetaminophen [Tylenol Extra 1,000 mg PO BID 02/02/21 02/11/21 History Strength] prochlorperazine maleate 10 mg PO Q6H PRN #20 tab 02/02/21 02/11/21 Rx [Compazine] docusate sodium 100 mg PO DAILY 02/11/21 02/11/21 History Past Med/Surg History Medical History Dyslipidemia GERD (gastroesophageal reflux disease) occasional Hx of Graves' disease hypothyroidism s/p ablation Hypertension Obesity Osteoarthritis Surgical History History of cataract surgery R/L History of cholecystectomy History of tooth extraction Family History Mother Osteoporosis Hypertension Father Osteoarthritis Other No family history of adverse response to anesthesia Social History Smoking Status: Never smoker Second Hand Exposure: Yes ( A CHILD); Hx Alcohol Use: No Hx Substance Use: No Preferred Language: Slovenian Communication Ability: Effective Visual Impairment: No Limitations Hearing Ability: Normal Apron Cleaner Required: No Beliefs That Will Affect Care: None marital status: Current Living Situation: Spouse current occupational status: retired 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 [employer] Feels Safe at Home: Yes Childhood Exposure to Second-Hand Smoke: Yes Dental Care, Regularly: No Physical Activity Frequency: 5-6 Times per Week Seatbelt Use: always Sunscreen Use: Yes Assistive Devices: Walker Review of Systems Review of Systems: All systems reviewed & are unremarkable except as noted in HPI & below Physical Exam Physical Exam: General: patient sitting on bedside commode, appears uncomfortable, AA&O x 4 Skin: warm, dry, intact, no rashes or lesions HEENT: NC/AT, PERRL, EOMI, anicteric sclera, conjunctiva without injection, external ear normal to inspection and nontender, nares patent, moist mucus membranes, dentition intact, no oropharyngeal lesions, neck supple, trachea midline, no LAD, no thyromegaly, no JVD Heart: +S1/S2, regular, no m/r/g Lungs: equal air entry bilaterally, no rales/rhonchi/wheezes Abd: +BS, soft, mildly tender with deep palpation, no masses/organomegaly/ascites Ext: warm, 2+ pulses in UE/LE bilaterally, no clubbing/cyanosis or edema, left knee consuelo in place - no edema/erythema/dehiscence Neuro: nonfocal, patient AA&O x 4, speech intact, no facial droop, moving all extremities on command with equal strength 5/5 Results & Data Results & Data ([facility]) Vital Signs (Past 12 Hours) Vital Signs Temp Pulse Resp BP Pulse Ox 02/12/21 00:30 93 H 17 119/80 99 02/12/21 00:25 100 H 31 H 127/95 99 02/11/21 23:00 117/79 99 02/11/21 22:51 113/81 98 02/11/21 22:45 100/46 L 98 02/11/21 19:49 94 H 25 H 110/83 100 02/11/21 19:37 36.9 C 110 H 18 105/69 96 Laboratory Results Lab Results 02/11/21 02/11/21 02/11/21 Range/Units 20:00 20:00 20:00 WBC 13.29 H (4.8-10.8) K/uL RBC 3.59 L (4.2-5.4) M/uL Hgb 10.5 L (12.0-16.0) g/dL Hct 31.2 L (37-47) % MCV 86.9 (80-100) fL MCH 29.2 (25-34) pg MCHC 33.7 (32-36) g/dL RDW Std Deviation 45.1 (36.4-46.3) fL RDW Coeff of Vinh 14.4 (11.5-14.5) % Plt Count 417 H (130-400) K/uL MPV 10.1 (7.4-10.4) fL Immature Gran % (Auto) 0.2 % Neut % (Auto) 76.6 % Lymph % (Auto) 16.1 % Castro % (Auto) 6.1 % Eos % (Auto) 0.7 % Baso % (Auto) 0.3 % Neut # (Auto) 10.19 H (1.4-6.5) K/uL Lymph # (Auto) 2.14 (1.2-3.4) K/uL Castro # (Auto) 0.81 H (0.11-0.59) K/uL Eos # (Auto) 0.09 (0-0.5) K/uL Baso # (Auto) 0.04 (0-0.2) K/uL Immature Gran # (Auto) 0.02 (0.00-0.02) K/uL Sodium 135 L (136-145) mmol/L Potassium 3.4 L (3.5-5.1) mmol/L Chloride 100 (98-107) mmol/L Carbon Dioxide 26 (21-32) mmol/L Anion Gap 9.0 (3-11) BUN 17 (7-18) mg/dl Creatinine 0.79 (0.6-1.2) mg/dl Est Cr Clr Drug Dosing 56.4 ml/min Est GFR ( Amer) 86.7 Est GFR (Non-Af Amer) 74.8 BUN/Creatinine Ratio 21.8 H (10-20) Glucose 110 H (70-99) mg/dl Calcium 9.5 (8.5-10.1) mg/dl Magnesium 2.2 (1.8-2.4) mg/dl Total Bilirubin 0.6 (0.2-1) mg/dl AST 16 (15-37) U/L ALT 19 (12-78) U/L Alkaline Phosphatase 69 (45-117) U/L Troponin I < 0.015 (0-0.045) ng/ml Total Protein 6.9 (6.4-8.2) gm/dl Albumin 3.6 (3.4-5.0) gm/dl Globulin 3.3 (2.5-4.0) gm/dl Albumin/Globulin Ratio 1.1 (0.9-2) TSH 5.260 H (0.300-4.500) uIu/ml Free T4 1.59 (0.8-1.6) ng/dl COVID-19 Eval Order CovFluRsv at [facility] SARS-CoV-2 (PCR) (Negative) Influenza Type A (PCR) (Neg) Influenza Type B (PCR) (Neg) RSV (RT-PCR) (Neg) 02/11/21 Range/Units 20:00 WBC (4.8-10.8) K/uL RBC (4.2-5.4) M/uL Hgb (12.0-16.0) g/dL Hct (37-47) % MCV (80-100) fL MCH (25-34) pg MCHC (32-36) g/dL RDW Std Deviation (36.4-46.3) fL RDW Coeff of Vinh (11.5-14.5) % Plt Count (130-400) K/uL MPV (7.4-10.4) fL Immature Gran % (Auto) % Neut % (Auto) % Lymph % (Auto) % Castro % (Auto) % Eos % (Auto) % Baso % (Auto) % Neut # (Auto) (1.4-6.5) K/uL Lymph # (Auto) (1.2-3.4) K/uL Castro # (Auto) (0.11-0.59) K/uL Eos # (Auto) (0-0.5) K/uL Baso # (Auto) (0-0.2) K/uL Immature Gran # (Auto) (0.00-0.02) K/uL Sodium (136-145) mmol/L Potassium (3.5-5.1) mmol/L Chloride (98-107) mmol/L Carbon Dioxide (21-32) mmol/L Anion Gap (3-11) BUN (7-18) mg/dl Creatinine (0.6-1.2) mg/dl Est Cr Clr Drug Dosing ml/min Est GFR ( Amer) Est GFR (Non-Af Amer) BUN/Creatinine Ratio (10-20) Glucose (70-99) mg/dl Calcium (8.5-10.1) mg/dl Magnesium (1.8-2.4) mg/dl Total Bilirubin (0.2-1) mg/dl AST (15-37) U/L ALT (12-78) U/L Alkaline Phosphatase (45-117) U/L Troponin I (0-0.045) ng/ml Total Protein (6.4-8.2) gm/dl Albumin (3.4-5.0) gm/dl Globulin (2.5-4.0) gm/dl Albumin/Globulin Ratio (0.9-2) TSH (0.300-4.500) uIu/ml Free T4 (0.8-1.6) ng/dl COVID-19 Eval Order SARS-CoV-2 (PCR) NEGATIVE (Negative) Influenza Type A (PCR) Negative (Neg) Influenza Type B (PCR) Negative (Neg) RSV (RT-PCR) Negative (Neg) Diagnostic Findings SINGLE VIEW CHEST CLINICAL HISTORY: Generalized weakness. FINDINGS: An AP, portable, upright chest radiograph is compared to study dated 02/02/2021. The cardiomediastinal silhouette is unremarkable. Chronic interstitial thickening is similar to previous. The lungs and pleural spaces are clear. No pneumothorax is seen. The skeletal structures are osteopenic. The bony thorax is grossly intact. IMPRESSION: No active disease in the chest. ACT 112: Negative or not required by law. Electronically signed by: Alex Golden M.D. 02/11/2021 8:43 PM Dictated: 02/11/212042Transcribed: 02/11/212042 CT SCAN OF THE ABDOMEN AND PELVIS WITHOUT IV CONTRAST CLINICAL HISTORY: Nausea. Constipation. Weight loss. COMPARISON STUDY: Abdominal CT dated 10/27/2012. TECHNIQUE: CT scan of the abdomen and pelvis is performed from the lung bases to the proximal femora. Images are reviewed in the axial, sagittal, and coronal planes. IV contrast was not administered for this examination. Note that the examination was performed in significantly suboptimal fashion without oral and IV contrast. A dose lowering technique was utilized adhering to the principles of ALARA. CT DOSE: 358.49 mGy.cm FINDINGS: Lung bases: The heart is normal in size and without pericardial effusion. The lung bases are clear. There is a moderate hiatal hernia. Liver: The unenhanced liver is normal in size, contour, and attenuation. There is no intrahepatic biliary ductal dilatation. A 1.2 cm cyst is noted in the right lobe. Gallbladder: Surgically absent noting clips in the gallbladder fossa. Spleen: Normal in size and attenuation. Pancreas: Unremarkable. Adrenal glands: A 1.6 cm left adrenal adenoma is unchanged. The right adrenal gland is normal in appearance. Kidneys: The unenhanced kidneys demonstrate cortical atrophy and are without hydronephrosis. There are no renal calculi identified. There is no evidence of contour deforming renal mass lesion. Abdominal vasculature: The abdominal aorta is normal in course and caliber noting mild atherosclerotic calcification. Bowel: There is rectosigmoid fecal impaction and mild/moderate constipation. There is mild perirectal inflammation. No bowel obstruction is seen. The appendix is normal as visualized. Peritoneum: There is no intraperitoneal free air or abdominal ascites. Lymphadenopathy: None. Pelvic viscera: The bladder is normal as visualized. The endometrium appears thickened in the fundal region measuring approximately 1 cm. No adnexal lesion is seen. Skeletal structures: The skeletal structures are heterogeneously osteopenic. There are numerous chronic appearing compression deformities identified throughout the imaged thoracolumbar spine. Moderate lumbosacral spondylosis is observed. No lytic or blastic lesions are seen. IMPRESSION: 1. There is rectosigmoid fecal impaction and mild to moderate constipation. 2. No bowel obstruction is seen. 3. There is mild perirectal inflammation. Correlate clinically for evidence of stercoral proctitis. 4. The endometrium appears thickened for age measuring approximately 1 cm. This is not well evaluated by CT. Nonemergent pelvic ultrasound and gynecology assessment are recommended. 5. There are numerous chronic appearing thoracolumbar compression deformities which are new from 2013. 6. Moderate hiatal hernia. 7. Additional findings as above. ACT 112: Negative or not required by law. Electronically signed by: Alex Golden M.D. 02/11/2021 8:51 PM Dictated: 02/11/212043Transcribed: 02/11/212043 PG Care Time/CCT Total # of Minutes Spent Total Time Spent with Patient: Total time spent is greater than 50% in coordination of care (as documented) at patient's floor/unit and/or counseling patient: Coding Level of Care Code 13088 OBS Care - Level 3 Diagnoses Constipation K59.00 Constipation type: unspecified constipation type Status post left knee replacement Z96.652 Postablative hypothyroidism E89.0 Hypertension I10 Hypertension type: essential hypertension Thickened endometrium R93.89 (1) Constipation Constipation type: unspecified constipation type Qualified Code(s): K59.00 - Constipation, unspecified (2) Hypertension Hypertension type: essential hypertension Qualified Code(s): I10 - Essential (primary) hypertension
[2021-02-12] MEDS ORDERED: bisacodyL 10 MG SUPP PR PRN (02:25)
[2021-02-12] MEDS ORDERED: MAGNESIUM CITRATE 296 ML/BTL PO PRN (02:25)
[2021-02-12] MEDS ORDERED: ONDANSETRON INJ 2 MG/ML 2 ML VIAL IV PRN (02:25)
[2021-02-12] MEDS: POTASSIUM CHLORIDE 20 MEQ in LACTATED RINGER'S 1,000 ML IV SCH ×2 (03:12→13:27)
[2021-02-12] MEDS: LEVOTHYROXINE SODIUM 100 MCG TABLET PO SCH (05:39)
--- NOTE | 2021-02-12 09:00 | Electrocardiogram Report ---
Test Reason : Blood Pressure : / mmHG Vent. Rate : 087 BPM Atrial Rate : 087 BPM P-R Int : 132 ms QRS Dur : 092 ms QT Int : 376 ms P-R-T Axes : 029 007 018 degrees QTc Int : 452 ms Normal sinus rhythm Possible Old Inferior infarct Possible Old Anterior infarct (cited on or before 02-FEB-2021) Abnormal ECG When compared with ECG of 02-FEB-2021 06:48, Borderline Criteria for Inferior infarct now present Confirmed by Marek Martínez ([id number]) on 02/12/2021 9:00:16 AM Referred By: Devon Roach Confirmed By:Marek Martínez
[2021-02-12] MEDS: ACETAMINOPHEN 500 MG TAB PO SCH ×2 (10:46→21:07)
[2021-02-12] MEDS: ASPIRIN 81 MG ECTAB PO SCH ×2 (10:46→21:07)
[2021-02-12] MEDS: DOCUSATE SODIUM 100 MG CAP PO SCH ×2 (10:47→21:08)
[2021-02-12] MEDS: DOCUSATE SODIUM/SENNA 50/8.6MG TAB PO SCH (10:47)
--- NOTE | 2021-02-12 12:31 | Hospitalist Progress Note ---
Date of Service February 12, 2021 Assessment & Plan (1) Constipation: 2 weeks of constipation post-op from left TKR. No ileus on imaging but suspect she probably had some element of such. Also with severe fecal impaction. Impaction improved. Constipation improving. Will give 4 additional doses of miralax "prep" to really get ahead of this. Then starting tomorrow - miralax with senna for bowel maintenance. (2) Status post left knee replacement: 01.28.21. Incision looks great. [place] removed. Continue ASA 81mg po BID for DVT proph. Stop mobic in the event she has gastritis from concurrent asa and mobic use. PT, OT. (3) Postablative hypothyroidism: TSH elevated at 5.26 with normal T4 Continue Synthroid 100mcg po daily Simply recommend a repeat TSH as outpatient and if still high then increase syn throid then (4) Hypertension: BPs low-normal since admission in setting of volume contraction. HOLD DAVID-HCTZ. Hydrate. Checked cortisol - >20. (5) Thickened endometrium: will need referral to rental clerk post-d/c for this (6) Dehydration: restart IV fluids repeat BMP am (7) Nausea: 2nd to constipation. can't rule out gastritis from aspirin/mobic use contributing to nausea. cortisol wnl - no Jeffrey's. anti-emetics prn. pepcid IV bid. protonix 40mg PO BID. re-eval am. (8) Weakness: multifactorial - dehydration, post-op deconditioning despite getting home therapies, etc. checked u/a today - not suggestive of UTI. hydrate with IV fluids. obtain PT, OT evals. (9) Hiatal hernia: moderate, on CT imaging. set up for gastritis, PUD, GERD, etc. H2 cesario + PPI. stop mobic. (10) DVT prophylaxis: asa 81mg BID extensively updated by phone this evening change observation to admission status due to poor oral intake, dehydration, refractory nausea, etc. Admission and Anticipated Discharge Date Admission Date: February 12, 2021 Subjective patient overall feels poorly. "I'm so weak and tired -- I thought I would feel better". she then began to cry. when I asked what was wrong she again stated she simply feels poorly and thought that by moving her bowels she would feel better. has no appetite. had multiple BMs overnight and this am with several enemas. having nausea in addition to the appetite loss. no abd pain - mainly bloating. no loss of taste/smell. no fevers/chills. no cough/congestion. no cp or dyspnea. no dysuria. has had dizziness at home of late. Review of Systems Constitutional: + fatigue, + weakness and + anorexia; no fever, no chills and no body aches Ear, Nose, Mouth, Throat: no nasal congestion and no sore throat Respiratory: no cough Gastrointestinal: + constipation (no BM 2 weeks prior to admission !) Musculoskeletal: + joint pain (left knee - mild ) Integumentary: no rash Neurologic: + dizziness; no headache(s) Psychiatric: + depression and + abnormal sleep pattern Physical Exam Constitutional: + ill appearing and + frail appearing; no acute distress and no altered mental status Eyes: PERRL, conjunctivae normal, anicteric sclerae ENMT: Mouth: + dry oral mucous membranes Respiratory: normal respiratory effort, lungs clear to auscultation Cardiovascular: Rate/Rhythm: regular rate and regular rhythm Heart Sounds: normal S1 and normal S2; no murmur Vessels: posterior tibial pulses present and dorsalis pedis pulses present; no JVD Gastrointestinal (Abdomen): Inspection/Auscultation: + abdomen distended (minimal ) and normal bowel sounds Percussion/Palpation: abdomen nontender, no guarding and no hepatosplenomegaly Musculoskeletal: left knee - TKR incision c/d/i; mild joint swelling; no warmth or tenderness Skin: + pallor Neurologic: moves all extremities; no focal motor deficits Psychiatric: Orientation: alert and oriented x 3 Affect: + tearful affect Lymphatic: no cervical lymphadenopathy Results & Data Results & Data ([facility]) Vital Signs (Past 12 Hours) Vital Signs Temp Pulse Pulse Resp BP BP Pulse Ox 02/12/21 08:00 37.0 C 74 16 116/69 98 02/12/21 02:15 36.9 C 96 H 18 132/86 100 02/12/21 02:00 77 22 114/58 L 98 02/12/21 01:30 78 24 104/68 97 02/12/21 01:20 109/75 97 02/12/21 01:00 99/75 L 97 bmp, cortisol, lipase wnl PG Care Time/CCT Total # of Minutes Spent Total Time Spent with Patient: Total time spent is greater than 50% in coordination of care (as documented) at patient's floor/unit and/or counseling patient: Coding Level of Care Code 23750 Subseq Hosp Care Lvl 3 Diagnoses Constipation K59.00 Constipation type: unspecified constipation type Status post left knee replacement Z96.652 Postablative hypothyroidism E89.0 Hypertension I10 Hypertension type: essential hypertension Thickened endometrium R93.89 Dehydration E86.0 Nausea R11.0 Weakness R53.1 Hiatal hernia K44.9 DVT prophylaxis Z29.9 (1) Hypertension Hypertension type: essential hypertension Qualified Code(s): I10 - Essential (primary) hypertension (2) Constipation Constipation type: unspecified constipation type Qualified Code(s): K59.00 - Constipation, unspecified
[2021-02-12] MEDS: POLYETHYLENE (MIRALAX) 17 GM PACK PO SCH ×5 (13:27→18:00)
[2021-02-12 16:08] LABS: Appearance Urine Clear (Clear); Blood Urine Negative (Negative); Color Urine Dark Yellow; Glucose Urine UA Negative (Negative); Ketones Urine 1+ (Negative); Leukocyte Esterase Urine Negative (Negative); Nitrite Urine Negative (Negative); Protein Urine Negative (Negative); Specific Gravity Urine 1.024 (1.000-1.030); Urobilinogen Urine Negative (Negative); pH Urine 5.5 (4.5-7.5)
[2021-02-12 16:12] LABS: Bilirubin Urine 1+ (Negative)
[2021-02-12] MEDS ORDERED: METOCLOPRAMIDE HCL INJ 5 MG/ML 2 ML VIAL IV ONE (17:28)
[2021-02-12] MEDS: FAMOTIDINE 20 MG in SYRINGE 3 ML IV SCH (17:52)
[2021-02-12] MEDS ORDERED: LISINOPRIL/HCTZ 10/12.5MG TAB PO SCH (21:00)
[2021-02-12] MEDS ORDERED: MELOXICAM 7.5 MG TAB PO SCH (21:00)
[2021-02-12] MEDS: PANTOprazole 40 MG TAB PO SCH (21:24)
[2021-02-13] MEDS: LEVOTHYROXINE SODIUM 100 MCG TABLET PO SCH (06:25)
[2021-02-13 07:55] LABS: Basophils # (auto) 0.03 K/uL (0-0.2); Basophils % (auto) 0.4 %; Eosinophils # (auto) 0.31 K/uL (0-0.5); Hematocrit (blood only) 27.2 % (37-47); Hemoglobin 8.9 g/dL (12.0-16.0); Immature Granulocytes # (auto) 0.01 K/uL (0.00-0.02); Immature Granulocytes % (auto) 0.1 %; Lymphocytes % (auto) 19.3 %; Mean Corpuscular Hemoglobin 28.9 pg (25-34); Mean Corpuscular Hgb Conc 32.7 g/dL (32-36); Mean Corpuscular Volume 88.3 fL (80-100); Mean Platelet Volume 9.2 fL (7.4-10.4); Monocytes # (auto) 0.73 K/uL (0.11-0.59); Monocytes % (auto) 9.4 %; Neutrophils # (auto) 5.21 K/uL (1.4-6.5); Neutrophils % (auto) 66.8 %; Platelet Count 335 K/uL (130-400); RDW Coefficient of Variation 14.9 % (11.5-14.5); RDW Standard Deviation 47.2 fL (36.4-46.3); Red Blood Count 3.08 M/uL (4.2-5.4); White Blood Count 7.79 K/uL (4.8-10.8)
[2021-02-13 08:25] LABS: BUN Creatinine Ratio 15.2 (10-20); Calcium 8.8 mg/dl (8.5-10.1); Creatinine Clr Calc Pharmacy 62.1 ml/min; Est GFR (Non-African American) 83.7; Potassium 3.5 mmol/L (3.5-5.1)
[2021-02-13] MEDS: PANTOprazole 40 MG TAB PO SCH ×2 (09:13→19:26)
[2021-02-13] MEDS: ASPIRIN 81 MG ECTAB PO SCH ×2 (09:13→19:25)
[2021-02-13] MEDS: DOCUSATE SODIUM 100 MG CAP PO SCH ×2 (09:14→19:26)
[2021-02-13] MEDS: ACETAMINOPHEN 500 MG TAB PO SCH ×2 (09:14→19:25)
[2021-02-13] MEDS: DOCUSATE SODIUM/SENNA 50/8.6MG TAB PO SCH (09:15)
[2021-02-13] MEDS: FAMOTIDINE 20 MG in SYRINGE 3 ML IV SCH (09:18)
[2021-02-13 10:39] LABS: Ferritin 112.6 ng/ml (8-388)
[2021-02-13] MEDS: POLYETHYLENE (MIRALAX) 17 GM PACK PO SCH (11:25)
[2021-02-13 15:39] LABS: Hematocrit (blood only) 28.3 % (37-47); Hemoglobin 9.3 g/dL (12.0-16.0)
[2021-02-13] MEDS ORDERED: SODIUM CHLORIDE 0.9% 1000ML 500 ML IV ONE (15:58)
--- NOTE | 2021-02-14 04:55 | Hospitalist Progress Note ---
Date of Service February 13, 2021 Assessment & Plan (1) Constipation: 2 weeks of constipation post-op from left TKR. No ileus on imaging but suspect she probably had some element of such. Also with severe fecal impaction. All constipation/impaction issues resolved. Cont miralax with senna for maintenance. (2) Status post left knee replacement: 01.28.21. Incision looks great. Spoke with Dr Nobles today - he gave OK for removal of consuelo. Order for staple removal given. Continue ASA 81mg po BID for DVT proph. Stop mobic in the event she has gastritis from concurrent asa and mobic use. (see below). cont PT, OT. (3) Postablative hypothyroidism: TSH elevated at 5.26 with normal T4 Continue Synthroid 100mcg po daily Simply recommend a repeat TSH as outpatient and if still high then increase synthroid then (4) Hypertension: BPs low-normal since admission in setting of volume contraction and acute blood loss anemia. Cont to HOLD DAVID-HCTZ. Checked cortisol - >20. Gave additional fluid bolus today. 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 can't rule out gastritis from aspirin/mobic use contributing to nausea. cortisol wnl - no [place] [address]'s. stool is heme+ -- I cannot rule out that she didn't have small amount of occult GI bleeding. either way H/H this am and this afternoon are stable. repeat CBC in am. remain off mobic. cont PPI twice daily. stop H2 cesario. (8) Weakness: multifactorial - dehydration, post-op deconditioning despite getting home therapies, anemia, etc. urine cx thus far negative. cont PT/OT. (9) Hiatal hernia: moderate, on CT imaging. set up for gastritis, PUD, GERD, etc. stopped mobic. cont PPI twice daily. (10) Heme positive stool: per staff the stool was not grossly melanotic nor had any BRB in it. certainly rectal irritation could have caused some heme+ stool. I am suspicious she may have had gastritis from post-op stress, asa use, and mobic use. cont PPI for suspected gastritis. H/H remain acceptable. will keep on PPI post-d/c and send to GI. (11) DVT prophylaxis: asa 81mg BID extensively updated by phone yesterday evening brief call to carleen as well (unfortunately my phone lost battery charge and the call was cut short) anticipate d/c in am Admission and Anticipated Discharge Date Admission Date: February 12, 2021 Subjective patient feeling MUCH better today actually has an appetite for the first time in 2 weeks nausea resolved no vomiting multiple BMs - soft, no gross melena or BRBPR no abd pain better energy not as emotional/tearful today despite low BP she is NOT dizzy or lightheaded Review of Systems Constitutional: no fever, no chills, no fatigue, no weakness and no anorexia Respiratory: no cough, no dyspnea and no dyspnea on exertion Cardiovascular: no chest pain Gastrointestinal: no abdominal pain, no nausea, no vomiting, no constipation, no blood in stools and no melena Physical Exam Constitutional: no acute distress and no altered mental status looks much better today ENMT: external ear and nose normal, oropharynx normal Respiratory: normal respiratory effort, lungs clear to auscultation Cardiovascular: Rate/Rhythm: regular rate and regular rhythm Heart Sounds: normal S1 and normal S2; no murmur Vessels: posterior tibial pulses present and dorsalis pedis pulses present; no JVD Gastrointestinal (Abdomen): normal bowel sounds, soft, nontender, no hepatosplenomegaly Inspection/Auscultation: abdomen not distended Skin: left knee incision - c/d/i; consuelo intact; no drainage Neurologic: moves all extremities; no focal motor deficits Psychiatric: Orientation: alert and oriented x 3 Results & Data Results & Data ([facility]) Vital Signs (Past 12 Hours) Vital Signs Temp Pulse Resp BP Pulse Ox 02/13/21 23:10 37.0 C 75 18 101/64 96 Laboratory Results Laboratory Results - last 24 hr 02/13/21 02/13/21 02/13/21 07:38 07:38 07:38 WBC 7.79 RBC 3.08 L Hgb 8.9 L Hct 27.2 L MCV 88.3 MCH 28.9 MCHC 32.7 RDW Std Deviation 47.2 H RDW Coeff of Vinh 14.9 H Plt Count 335 MPV 9.2 Immature Gran % (Auto) 0.1 Neut % (Auto) 66.8 Lymph % (Auto) 19.3 [place] % (Auto) 9.4 Eos % (Auto) 4.0 Baso % (Auto) 0.4 Neut # (Auto) 5.21 Lymph # (Auto) 1.50 [place] # (Auto) 0.73 H Eos # (Auto) 0.31 Baso # (Auto) 0.03 Immature Gran # (Auto) 0.01 Sodium 139 Potassium 3.5 Chloride 107 Carbon Dioxide 26 Anion Gap 6.0 BUN 11 Creatinine 0.72 Est Cr Clr Drug Dosing 62.1 Est GFR ( Amer) 97.0 Est GFR (Non-Af Amer) 83.7 BUN/Creatinine Ratio 15.2 Glucose 87 Calcium 8.8 Iron 36 Transferrin 188 L Transferrin % Sat 13 L Ferritin 112.6 Stool Occult Bld Scrn 02/13/21 02/13/21 13:09 15:30 WBC RBC Hgb 9.3 L Hct 28.3 L MCV MCH MCHC RDW Std Deviation RDW Coeff of Vinh Plt Count MPV Immature Gran % (Auto) Neut % (Auto) Lymph % (Auto) [place] % (Auto) Eos % (Auto) Baso % (Auto) Neut # (Auto) Lymph # (Auto) [place] # (Auto) Eos # (Auto) Baso # (Auto) Immature Gran # (Auto) Sodium Potassium Chloride Carbon Dioxide Anion Gap BUN Creatinine Est Cr Clr Drug Dosing Est GFR ( Amer) Est GFR (Non-Af Amer) BUN/Creatinine Ratio Glucose Calcium Iron Transferrin Transferrin % Sat Ferritin Stool Occult Bld Scrn Positive A PG Care Time/CCT Total # of Minutes Spent Total Time Spent with Patient: Total time spent is greater than 50% in coordination of care (as documented) at patient's floor/unit and/or counseling patient: Coding Level of Care Code 73697 Subseq Hosp Care Lvl 2 Diagnoses Constipation K59.00 Constipation type: unspecified constipation type Status post left knee replacement Z96.652 Postablative hypothyroidism E89.0 Hypertension I10 Hypertension type: essential hypertension Thickened endometrium R93.89 Dehydration E86.0 Nausea R11.0 Weakness R53.1 Hiatal hernia K44.9 Heme positive stool R19.5 DVT prophylaxis Z29.9 (1) Hypertension Hypertension type: essential hypertension Qualified Code(s): I10 - Essential (primary) hypertension (2) Constipation Constipation type: unspecified constipation type Qualified Code(s): K59.00 - Constipation, unspecified
[2021-02-14] MEDS: LEVOTHYROXINE SODIUM 100 MCG TABLET PO SCH (05:49)
[2021-02-14 06:12] LABS: Hematocrit (blood only) 27.2 % (37-47); Hemoglobin 8.8 g/dL (12.0-16.0); Mean Corpuscular Hemoglobin 28.8 pg (25-34); Mean Corpuscular Hgb Conc 32.4 g/dL (32-36); Mean Corpuscular Volume 88.9 fL (80-100); Mean Platelet Volume 9.5 fL (7.4-10.4); Platelet Count 336 K/uL (130-400); RDW Standard Deviation 48.8 fL (36.4-46.3); Red Blood Count 3.06 M/uL (4.2-5.4); White Blood Count 6.63 K/uL (4.8-10.8)
[2021-02-14 06:52] LABS: BUN Creatinine Ratio 14.9 (10-20); Calcium 8.8 mg/dl (8.5-10.1); Creatinine Clr Calc Pharmacy 55.9 ml/min; Est GFR (African American) 85.4; Est GFR (Non-African American) 73.7
[2021-02-14] MEDS: PANTOprazole 40 MG TAB PO SCH (08:59)
[2021-02-14] MEDS: POLYETHYLENE (MIRALAX) 17 GM PACK PO SCH (09:00)
[2021-02-14] MEDS: ASPIRIN 81 MG ECTAB PO SCH (09:00)
[2021-02-14] MEDS: ACETAMINOPHEN 500 MG TAB PO SCH (09:00)
[2021-02-14] MEDS: DOCUSATE SODIUM/SENNA 50/8.6MG TAB PO SCH (09:00)
[2021-02-14] MEDS: DOCUSATE SODIUM 100 MG CAP PO SCH (09:00)
--- NOTE | 2021-02-14 11:59 | Discharge Summary ---
Date of Service date of admission - February 12, 2021 date of discharge - February 14, 2021 Admission HPI Per Admitting Provider Sparkle Lizama is a 70yo female presenting with constipation. Patient had a right TKA performed on 01/28/21. Surgery was well tolerated with no complications. She has taken minimal pain medication and is participating in PT as best as she is able. She reports ongoing constipation with last BM being on 01/27/21. She has abdominal pain and fullness as well as nausea and vomiting. She reports poor appetite and decreased PO intake. She is passing gas. Denies fever/chills/CP/SOB. She was administered a soap suds enema as well as molasses enema in the ER with no reponse. ER Course: ANTONI Sherwood Principal Diagnosis 1. severe constipation/fecal impaction - resolved 2. nausea, dyspepsia - resolved 3. heme + stool Discharge Exam Constitutional no acute distress and no altered mental status ENMT external ear and nose normal, oropharynx normal Respiratory normal respiratory effort, lungs clear to auscultation Cardiovascular Rate/Rhythm: regular rate and regular rhythm Heart Sounds: normal S1 and normal S2; no murmur Vessels: posterior tibial pulses present and dorsalis pedis pulses present; no JVD Gastrointestinal (Abdomen) normal bowel sounds, soft, nontender, no hepatosplenomegaly Inspection/Auscultation: abdomen not distended Percussion/Palpation: no guarding Musculoskeletal left knee incision clean, dry, and intact; well-healed Skin + pallor Neurologic moves all extremities; no focal motor deficits Psychiatric Orientation: alert and oriented x 3 Discharge Data Allergies Allergy/AdvReac Type Severity Reaction Status Date / Time codeine AdvReac Mild Nausea Verified 02/11/21 23:55 Consultations PT, OT Ordered Studies Abdomen/Pelvis CT 02/11/21 20:00 CT SCAN OF THE ABDOMEN AND PELVIS WITHOUT IV CONTRAST CLINICAL HISTORY: Nausea. Constipation. Weight loss. COMPARISON STUDY: Abdominal CT dated 10/27/2012. TECHNIQUE: CT scan of the abdomen and pelvis is performed from the lung bases to the proximal femora. Images are reviewed in the axial, sagittal, and coronal planes. IV contrast was not administered for this examination. Note that the examination was performed in significantly suboptimal fashion without oral and IV contrast. A dose lowering technique was utilized adhering to the principles of ALARA. CT DOSE: 358.49 mGy.cm FINDINGS: Lung bases: The heart is normal in size and without pericardial effusion. The lung bases are clear. There is a moderate hiatal hernia. Liver: The unenhanced liver is normal in size, contour, and attenuation. There is no intrahepatic biliary ductal dilatation. A 1.2 cm cyst is noted in the right lobe. Gallbladder: Surgically absent noting clips in the gallbladder fossa. Spleen: Normal in size and attenuation. Pancreas: Unremarkable. Adrenal glands: A 1.6 cm left adrenal adenoma is unchanged. The right adrenal gland is normal in appearance. Kidneys: The unenhanced kidneys demonstrate cortical atrophy and are without hydronephrosis. There are no renal calculi identified. There is no evidence of contour deforming renal mass lesion. Abdominal vasculature: The abdominal aorta is normal in course and caliber noting mild atherosclerotic calcification. Bowel: There is rectosigmoid fecal impaction and mild/moderate constipation. There is mild perirectal inflammation. No bowel obstruction is seen. The appendix is normal as visualized. Peritoneum: There is no intraperitoneal free air or abdominal ascites. Lymphadenopathy: None. Pelvic viscera: The bladder is normal as visualized. The endometrium appears thickened in the fundal region measuring approximately 1 cm. No adnexal lesion is seen. Skeletal structures: The skeletal structures are heterogeneously osteopenic. There are numerous chronic appearing compression deformities identified throughout the imaged thoracolumbar spine. Moderate lumbosacral spondylosis is observed. No lytic or blastic lesions are seen. IMPRESSION: 1. There is rectosigmoid fecal impaction and mild to moderate constipation. 2. No bowel obstruction is seen. 3. There is mild perirectal inflammation. Correlate clinically for evidence of stercoral proctitis. 4. The endometrium appears thickened for age measuring approximately 1 cm. This is not well evaluated by CT. Nonemergent pelvic ultrasound and gynecology assessment are recommended. 5. There are numerous chronic appearing thoracolumbar compression deformities which are new from 2013. 6. Moderate hiatal hernia. 7. Additional findings as above. ACT 112: Negative or not required by law. Electronically signed by: Alex Golden M.D. 02/11/2021 8:51 PM Chest X-Ray 02/11/21 20:01 SINGLE VIEW CHEST CLINICAL HISTORY: Generalized weakness. FINDINGS: An AP, portable, upright chest radiograph is compared to study dated 02/02/2021. The cardiomediastinal silhouette is unremarkable. Chronic interstitial thickening is similar to previous. The lungs and pleural spaces are clear. No pneumothorax is seen. The skeletal structures are osteopenic. The bony thorax is grossly intact. IMPRESSION: No active disease in the chest. ACT 112: Negative or not required by law. Electronically signed by: Alex Golden M.D. 02/11/2021 8:43 PM Hospital Course (1) Constipation: 2 weeks of constipation post-op from left TKR. No ileus on imaging but suspect she probably had some element of such given the severity of this issue. Also with severe fecal impaction. All constipation/impaction issues resolved with use of multiple enemas and oral bowel agents during her stay. At discharge I recommended miralax with senna for maintenance. (2) Nausea: 2nd to constipation. I couldn't rule out gastritis from aspirin/mobic use contributing to nausea. Cortisol wnl - no [place]'s. Stool was trace heme+ -- I also couldn't rule out that she didn't have small amount of occult GI bleeding, perhaps from gastritis or PUD. She was initiated on H2 cesario and PPI early in her course along with anti- emetics. Nausea quickly resolved with such. Once the nausea resolved we were able to quickly advance her diet. She will remain off mobic given the GI upset and heme + stool. Continue twice daily protonix at discharge. I advised an outpatient consult with [facility] - she may need an EGD and/or other GI work-up given the above. (3) Status post left knee replacement: 01.28.21 - by Dr Dveon Nobles. Incision looks great. Rosalie removed this admission. Knee with minimal pain. Continue ASA 81mg po BID for DVT proph. Stop mobic in the event she has gastritis from concurrent asa and mobic use. (see below). Received PT/OT here, and will need ongoing therapies outside of the hospital. (4) Heme positive stool: Per nursing staff the stool was not grossly melanotic nor had any BRB in it. Certainly rectal irritation from her fecal impaction could have caused some heme+ stool. I am suspicious, however, that she may have had gastritis from post-op stress, asa use, and mobic use given her nausea, heme+ stool, and drop in. H/H while hospitalized. She has a moderate-sized hiatal hernia on CT and this is a risk factor for upper GI symptoms as well. She will continue PPI for suspected gastritis and follow-up with [facility] for consideration of endoscopic evaluation. Hemoglobin at admission was 10.5. Discharge hemoglobin was 8.8. (5) Postablative hypothyroidism: TSH elevated at 5.26 with normal T4 Continue Synthroid 100mcg po daily Simply recommend a repeat TSH as outpatient and if still high then increase synthroid then (6) Hypertension: BPs low-normal since admission in setting of volume contraction and anemia. DAVID-HCTZ held while hospitalized. Checked cortisol and was wnl. At discharge she was advised to continue holding her DAVID-HCTZ. (7) Thickened endometrium: will need referral to drilling field professional post-d/c for this seen incidentally on CT abd/pelvis while hospitalized (8) Dehydration: resolved with IV Fluids (9) Weakness: multifactorial - dehydration, post-op deconditioning despite getting home therapies, anemia, etc. urine culture negative. cortisol wnl. anemia could have contributed (Hb 8.8 at discharge). weakness improved once dehydration was resolved and she was eating. (10) Hiatal hernia: moderate, on CT imaging. set up for gastritis, PUD, GERD, etc. stopped mobic. cont PPI twice daily. [facility] referral post-discharge. (11) Anemia: Hemoglobin at admission was 10.5. Discharge hemoglobin was 8.8. Some of the anemia could have been dilutional from copious IV hydration. Some of the anemia could have been mild GI blood loss given her upper GI symptoms and heme + stool along with concern for gastritis (or PUD). She will take ferrous sulfate 325mg daily at discharge for 2-3 months. Will need a repeat CBC as outpatient within a week of discharge to ensure stability. (12) DVT prophylaxis: continue asa 81mg BID given her recent left TKR. Total Time Total Time Spent Total Time Spent (In Minutes): 45 Total Time Includes: Examination of the Patient, Discharge Planning, Medication Reconciliation and Communication With Other Providers Discharge Plan Discharge Items Patient Disposition: Home - Self-Care Reason For Visit: FECAL IMPACTION/SEVERE CONSTIPATION Discharge Diagnosis: 1. fecal impaction/severe constipation - resolved; moving bowels nicely 2. poor appetite, nausea, trace of blood in stool - suspect you have had "gastritis" which is irritation of the lining of the stomach; improved with acid reducers and stopping your meloxicam 3. low blood pressure - due to severe dehydration, etc - improved 4. abnormal uterus on CT scan - gynecology follow-up needed 5. recent left knee replacement - consuelo removed 02/13/21 6. hiatal hernia - moderate in size - as seen on CT scan Activity: As commented below Activity Comment: please follow any instructions previously given by Dr Nobles from ortho Driving/Machine Use: Resume 3 days after discharge Non-emergency contact: Primary Care Provider and Specialist Call non-emergency contact if: you have any medication questions, your symptoms worsen, your pain is not controlled, your pain is worsening, you have a fever, your wound has increased redness, your wound has increased drainage and your wound pain has increased Follow-up/Referrals: [facility] [Provider Group] (suspected gastritis, heme+ stool ) [facility] Obstetrics & Gynecology [Provider Group] (abnormal uterine stripe on CT scan ) Sukhwinder Garcia DO [Physician] - 03/07/21 10:00 am Devon Roach DO [Primary Care Provider] - (see Dr Roach within 1 week ) Devon Nobles DO [Physician] - Diet: Regular Addtl Attending Provider Instructions: Mrs Lizama, Boris were admitted to the hospital for several GI complaints including no bowel movement for 2 weeks, stomach upset/nausea, lack of appetite, and weakness. Your CT scan of the abdomen showed severe constipation with fecal impaction. These were treated with several enemas and an aggressive oral bowel regimen. The constipation & impaction resolved with such. I suspect you may have had gastritis in addition to the constipation. Gastritis is irritation of the lining of the stomach. The combination of aspirin, meloxicam, and physical stress of your recent surgery are risk factors for gastritis. I cannot rule out an ulcer. We also saw a hiatal hernia on CT which can lend itself to stomach irritation. The nausea, lack of appetite, and trace amount of blood in the stool may have been from suspected gastritis. These symptoms improved with stopping the meloxicam, using acid reducers, and nausea medication. Lastly, incidentally on CT scan, the uterus looked abnormal. You will need follow-up with Gynecology for this. Recommendations - 1. Please STOP the following medications - * meloxicam * lisinopril-hydrochlorothiazide * docusate (colace) 2. 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 Please TAKE an iedn-owz-lhfhnac iron supplement - ferrous sulfate 325mg once daily. Take for 2-3 months. This will cause your stools to be dark and may cause constipation. 4. For constipation - * miralax [id number] once or twice daily * senna - 2 tabs once daily * you may need to take both products for a period of time to have a soft bowel movement once daily 5. Continue your low-dose aspirin twice daily as per Dr Nobles's recommendation. Stop the aspirin when ok with Dr Nobles (probably in the next 2-4 weeks). 6. Avoid alcohol, excessive amounts of acidic foods (orange juice, fried foods, red sauces, etc), excessive amounts of caffeinated beverages (coffee, etc). [place] food for the next 5-7 days as your stomach recovers. Follow-up - see separate section Be sure to call Dr Nobles's office to reschedule your post-op appointment Return to [facility] if - * you have fevers over 100.5 degrees * you have worsening abdominal pain * you have worsening nausea/vomiting * you develop recurrent, severe constipation despite the above medications * you see black, tarry stools * you see bright red blood in your stools * you have significant dizziness * any other concerns Continue to feel better! -Dr Taylor Pending Studies at Discharge: No Stand-Alone Forms: My [facility], Smoking Cessation Medications and DC Order Prescriptions: New pantoprazole 40 mg Tablet,Delayed Release (Dr/Ec) 40 mg PO BID Qty: 60 RF: 1 polyethylene glycol 3350 [Miralax] 17 gram Powder In Packet 17 g PO DAILY Qty: 30 RF: 0 sennosides [Senna Laxative] 8.6 mg tablet 17.2 mg PO DAILY Qty: 30 RF: 0 ferrous sulfate 325 mg (65 mg iron) tablet 325 mg PO DAILY Qty: 60 RF: 0 Continued tramadol 50 mg tablet 50 mg PO Q8H PRN (Reason: pain) Qty: 30 RF: 0 ondansetron HCl [Zofran] 4 mg tablet 4 mg PO Q8H PRN (Reason: nausea and vomiting) Qty: 10 RF: 0 (DME) Wheeled Walker Misc See Rx Instructions .MEDSUPPLY Qty: 1 RF: 0 levothyroxine 100 mcg tablet 100 mcg PO QAM RF: 0 cholecalciferol (vitamin D3) [Vitamin D3] 50 mcg (2,000 unit) Capsule 50 mcg PO PM RF: 0 aspirin [Adult Low Dose Aspirin] 81 mg tablet,delayed release (DR/EC) 81 mg PO BID Qty: 84 RF: 0 acetaminophen [Tylenol Extra Strength] 500 mg Tablet 1,000 mg PO BID RF: 0 prochlorperazine maleate [Compazine] 10 mg tablet 10 mg PO Q6H PRN (Reason: nausea and vomiting) Qty: 20 RF: 0 Discontinued meloxicam 7.5 mg tablet 7.5 - 15 mg PO PM Qty: 40 RF: 2 lisinopril-hydrochlorothiazide 10-12.5 mg tablet 1 tab PO PM RF: 0 docusate sodium 100 mg Capsule 100 mg PO DAILY RF: 0 Discharge Orders: Discharge Order (Routine); Ordered 02/14/21 Ordered By: Parmjit Ruiz/Other Patient Handouts: Treating Constipation, ED Constipation (Adult), ED Hiatal Hernia Admission Data Admit Date/Time: 02/12/21 01:06 Attending Provider: Parmjit Taylor Admit Provider: Savanah Benz Primary Care Provider: Devon Roach Other Providers: Savanah Benz Other Interventions: Discharge Summary Assessment (RN) Last Done: 02/14/21 13:06 Coding Level of Care Code D/C Day Management >30 mins Diagnoses Constipation K59.00 Constipation type: unspecified constipation type Nausea R11.0 Status post left knee replacement Z96.652 Heme positive stool R19.5 Postablative hypothyroidism E89.0 Hypertension I10 Hypertension type: essential hypertension Thickened endometrium R93.89 Dehydration E86.0 Weakness R53.1 Hiatal hernia K44.9 Anemia D64.9 DVT prophylaxis Z29.9
--- NOTE | 2021-02-20 09:07 | Coding Query ---
CODING QUERY To promote full compliance with coding requirements relating to patient care, provider participation is requested in all cases of manager dental uncertainty. Please assist us with the question(s) below: Coding Question(s): 1. There is documentation of, "Constipation: 2 weeks of constipation post-op from left TKR. No ileus on imaging but suspect she probably had some element of such given the severity of this issue. Also with severe fecal impaction.". Please specify below, in your clinical opinion, regarding the possible ileus and severe fecal impaction. ( ) Possible Ileus and Severe Fecal Impaction are likely Postoperative Complications ( x ) Possible Ileus and Severe Fecal Impaction are Not likely Postoperative Complications ( ) Other: Please Specify 2. There is documentation of, "I couldn't rule out gastritis from aspirin/mobic use contributing to nausea" and, "I also couldn't rule out that she didn't have small amount of occult GI bleeding, perhaps from gastritis or PUD" and, "I am suspicious, however, that she may have had gastritis from post-op stress, asa use, and mobic use given her nausea, heme+ stool, and drop in. H/H while hospitalized.". Please specify below, in your clinical opinion regarding Gastritis. ( ) Gastritis is likely also a Postoperative Complication, in addition to Mobic and Aspirin use ( x ) Gastritis is Not likely a Postoperative Complication and is likely due to Mobic and Aspirin use ( ) Other: Please Specify Physician's Response(s): Thank you Karlee Trinh Principal Diagnosis: "that condition established after study, to be chiefly responsible for occasioning the admission of the patient to the hospital for care." Co-Existing Principal Diagnosis: "when two or more diagnoses equally meet the criteria for principal diagnosis as determined by the circumstances of admission, diagnostic work up, and/or therapy provided, and the Alphabetic Index, Tabular List, or another coding guideline does not provide sequencing direction, any one of the diagnoses may be sequenced first." "When the physician has documented what appears to be a current diagnosis in the body of the record, but has not included the diagnosis in the final diagnostic statement, the physician should be asked whether the diagnosis should be added." (Source Coding Clinic 2 QTR90. p3-4) ELISABET
== END 2021-02-14 14:39 | disposition home or self-care (01) | DRG 388 ==
LOC: ED 19:21 → 3W 19:21 → SUATTDRO 02-12 01:06 → 3W 02-12 02:11